=== PATIENT | male | born 1985 | race Caucasian/White ===

== ENCOUNTER 2022-12-03 13:20 | Emergency (ER) | payer BC, SELFPAY ==
[2022-12-03 13:40] VITALS: BP 134/99; PULSE 70; RESP 14; TEMP 36.8; O2SAT 100; BMI 23.8
--- NOTE | 2022-12-03 13:49 | ECG_ITS ---
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
[2022-12-03 13:51] VITALS: O2SAT 98
--- NOTE | 2022-12-03 14:01 | XR_ITS ---
The [address] [address] Patient Name: TRAVON MCCARTNEY MRN: [id number] date: 1985 Sex: M Assigned Patient Location: ED.MAIN Current Patient Location: ER Accession/Order Number: [id number] Exam Date: 12/03/2022 14:23 Report Date: 12/03/2022 15:07 At the request of: MATTIE STEIN Procedure: XR chest 1V XR chest 1V CLINICAL HISTORY: syncope. COMPARISON: None Available. TECHNIQUE: Single AP portable upright view of the chest. FINDINGS: The lungs are clear. No pleural effusion or pneumothorax. Cardiomediastinal silhouette size is normal. No acute bony process. IMPRESSION: No acute cardiopulmonary process. Electronically authenticated by: RAFIA GUADALUPE Date: 12/03/2022 15:07
[2022-12-03 14:27] LABS: Bilirubin Urine NEGATIVE (NEGATIVE); Blood Urine NEGATIVE (NEGATIVE); Clarity Urine CLEAR (CLEAR); Color Urine LT. YELLOW (YELLOW); Glucose Urine UA NEGATIVE (NEGATIVE); Ketones Urine NEGATIVE (NEGATIVE); Leukocyte Esterase Urine NEGATIVE (NEGATIVE); Nitrite Urine NEGATIVE (NEGATIVE); Protein Urine NEGATIVE (NEG/TRACE); Urobilinogen Urine 0.2 EU/dL (0.2-1.0); pH Urine 7.5 (5.0-9.0)
[2022-12-03 14:31] LABS: Urine Microscopic Indicated NO
[2022-12-03 14:32] LABS: Basophils Percent Auto 0.6 % (0.2-2.0); Eosinophils Absolute Auto 0.1 10^3/uL (0.0-0.7); Eosinophils Percent Auto 1.9 % (0.9-7.0); Hematocrit 40.7 % (42.0-54.0); Hemoglobin 14.3 g/dL (14.0-18.0); Immature Granulocytes Abs Auto 0.03 10^3/uL (0.00-0.03); Immature Granulocytes Pct Auto 0.6 % (0.0-0.5); Lymphocytes Percent Auto 21.4 % (20.5-60.0); Mean Corpuscular HGB Conc 35.1 g/dL (29.9-35.2); Mean Corpuscular Hemoglobin 30.6 pg (25.9-34.0); Mean Platelet Volume 10.7 fL (9.5-13.5); Monocytes Absolute Auto 0.4 10^3/uL (0.3-0.8); Monocytes Percent Auto 7.9 % (1.7-12.0); Neutrophils Absolute Auto 3.2 10^3/uL (1.4-6.5); Neutrophils Percent Auto 67.6 % (43.0-75.0); Platelet Count 279 10^3/uL (150-450); Red Blood Count 4.68 10^6/uL (4.70-6.10); Red Cell Distribution Width 12.7 % (11.0-15.0); White Blood Count 4.7 10^3/uL (4.0-11.0)
[2022-12-03 14:36] VITALS: BP 127/83; BP 136/87; BP 138/93; PULSE 58; PULSE 60; PULSE 68
[2022-12-03 14:43] LABS: Anion Gap 11.5; BUN Creatinine Ratio 11.3; Calcium 9.6 mg/dL (8.5-10.1); Carbon Dioxide 28.5 mmol/L (21.0-32.0); Chloride 102 mmol/L (98-107); Estimated GFR (African America >60 (>=60); Estimated GFR (Non-African Ame >60 (>=60); Glucose 98 mg/dL (74-106); Sodium 138 mmol/L (136-145); Troponin I High Sensitivity <4.0 pg/mL (4.0-76.1)
[2022-12-03] MEDS: 0.9 % SODIUM CHLORIDE 1,000 ML 999 ML IV (14:47)
--- NOTE | 2022-12-03 15:34 | ED_ITS ---
HPI - Syncope General Chief Complaint: Syncope Stated Complaint: SYNCOPE Time Seen by Provider: 12/03/22 14:01 Source: patient Mode of arrival: Wheelchair History of Present Illness HPI narrative: patient was at work, exerting himself when he suddenly got dizzy, felt faint and then passed out. he did not injure anything. On arrival he was already feeling better. He told me that he did not take his psych meds last night and that he thinks that is what caused that. He denied any cardiac symptoms, ear rigning or visual changes associated with the event. Related Data Allergies Allergy/AdvReac Type Severity Reaction Status Date / Time No Known Drug Allergies Allergy Verified 12/03/22 13:40 Exam Constitutional Vital Signs - 24 hr 12/03/22 13:40 12/03/22 13:51 12/03/22 14:36 Temperature 98.2 F Pulse Rate [Monitor] 70 Pulse Rate [orthostatic lying] 60 Pulse Rate [orthostatic sitting] 68 Pulse Rate [orthostatic standing] 58 L Respiratory Rate 14 Blood Pressure [Left Arm] 134/99 H Blood Pressure [orthostatic lying] 127/83 H Blood Pressure [orthostatic sitting] 138/93 H Blood Pressure [orthostatic standing] 136/87 H Pulse Oximetry 100 98 Oxygen Delivery Method Room Air Room Air Course Vital Signs Vital signs: Vital Signs Temperature 98.2 F 12/03/22 13:40 Pulse Rate 70 12/03/22 13:40 Respiratory Rate 14 12/03/22 13:40 Blood Pressure 134/99 H 12/03/22 13:40 Pulse Oximetry 100 12/03/22 13:40 Oxygen Delivery Method Room Air 12/03/22 13:40 Temperature 98.2 F 12/03/22 13:40 Pulse Rate 60 12/03/22 14:36 Respiratory Rate 14 12/03/22 13:40 Blood Pressure 127/83 H 12/03/22 14:36 Pulse Oximetry 98 12/03/22 13:51 Oxygen Delivery Method Room Air 12/03/22 13:51 MDM - Syncope MDM Narrative Medical decision making narrative: 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 Blood drawn and sent for evaluation. orthostatics were negative. The patient was given normal saline IV fluid. He felt better after receiving that. EKG was normal and his blood tests were unremarkable. He was informed of results, given reassurance and discharged home. I encouraged her to make sure he was eating appropriately, taking plenty of fluids and take his medications as prescribed. Lab Data Attestation: I reviewed the patient's lab results. Labs: Lab Results 12/03/22 12/03/22 Range/Units 14:00 14:19 WBC 4.7 (4.0-11.0) 10^3/uL RBC 4.68 L (4.70-6.10) 10^6/uL Hgb 14.3 (14.0-18.0) g/dL Hct 40.7 L (42.0-54.0) % MCV 87.0 (80.0-94.0) fL MCH 30.6 (25.9-34.0) pg MCHC 35.1 (29.9-35.2) g/dL RDW 12.7 (11.0-15.0) % Plt Count 279 (150-450) 10^3/uL MPV 10.7 (9.5-13.5) fL Neut % (Auto) 67.6 (43.0-75.0) % Lymph % (Auto) 21.4 (20.5-60.0) % Lucas % (Auto) 7.9 (1.7-12.0) % Eos % (Auto) 1.9 (0.9-7.0) % Baso % (Auto) 0.6 (0.2-2.0) % Neut # (Auto) 3.2 (1.4-6.5) 10^3/uL Lymph # (Auto) 1.0 L (1.2-3.8) 10^3/uL Lucas # (Auto) 0.4 (0.3-0.8) 10^3/uL Eos # (Auto) 0.1 (0.0-0.7) 10^3/uL Baso # (Auto) 0.0 (0.0-0.1) 10^3/uL Abs Immat Gran (auto) 0.03 (0.00-0.03) 10^3/uL Imm/Tot Granulo (auto) 0.6 H (0.0-0.5) % Sodium 138 (136-145) mmol/L Potassium 4.0 (3.5-5.1) mmol/L Chloride 102 (98-107) mmol/L Carbon Dioxide 28.5 (21.0-32.0) mmol/L Anion Gap 11.5 BUN 13.0 (7.0-18.0) mg/dL Creatinine 1.15 (0.70-1.30) mg/dL Est GFR ( Amer) >60 (>=60) Est GFR (Non-Af Amer) >60 (>=60) BUN/Creatinine Ratio 11.3 Glucose 98 (74-106) mg/dL Calcium 9.6 (8.5-10.1) mg/dL Troponin I High Sens <4.0 L (4.0-76.1) pg/mL Urine Color Lt. yellow (YELLOW) Urine Clarity Clear (CLEAR) Urine pH 7.5 (5.0-9.0) Ur Specific [place] 1.010 (1.005-1.025) Urine Protein Negative (NEG/TRACE) mg/dL Urine Glucose (UA) Negative (NEGATIVE) mg/dL Urine Ketones Negative (NEGATIVE) mg/dL Urine Occult Blood Negative (NEGATIVE) Urine Nitrite Negative (NEGATIVE) Urine Bilirubin Negative (NEGATIVE) Urine Urobilinogen 0.2 (0.2-1.0) EU/dL Ur Leukocyte Esterase Negative (NEGATIVE) ECG Data Interpretation: EKG interpretation: Emergency Department physician interpretation. Normal sinus rhythm at 61bpm. Normal axis, normal intervals and no ST segment elevation or depression.normal EKG Discharge Plan Discharge Chief Complaint: Syncope Clinical Impression: Syncope Patient Disposition: Home, Self-Care Time of Disposition Decision: 15:37 Instructions: Syncope (ED) Stand Alone Forms: Portal Instructions Referrals: Ze England MD [Primary Care Provider] - 1 week
== END 2022-12-03 15:43 | disposition home or self-care (01) ==
PROVIDERS: Emergency Provider Emergency Medicine; PCP Family Medicine
DX: R55 Syncope and collapse (principal); Z79.899 Other long term (current) drug therapy
CPT/HCPCS: 36415; 71045; 80048; 81003; 84484; 85025; 93005; 99285

== ENCOUNTER 2023-06-01 09:48 | Outpatient (OUT) | payer BC, SELFPAY ==
--- NOTE | 2023-06-01 09:54 | XR_ITS ---
The [address] [address] Patient Name: TRAVON MCCARTNEY MRN: [id number] date: 1985 Sex: M Assigned Patient Location: RAD Current Patient Location: [facility] Accession/Order Number: [id number] Exam Date: 06/01/2023 09:58 Report Date: 06/02/2023 10:03 At the request of: EVERARDO PARK Procedure: XR knee RT 3V EXAM: XR knee RT 3V HISTORY: Right Knee Pain M25.561 COMPARISON: None. TECHNIQUE: 3 views of the right knee were obtained. FINDINGS: No definite acute fracture or dislocation. No significant focal osseous or articular abnormalities are identified. No evidence of sizable suprapatellar joint effusion. Soft tissues are grossly within normal limits. XR/XR knee RT 3V IMPRESSION: Right knee study is grossly unremarkable. Follow up as needed. Electronically authenticated by: TERRIE MARTIN Date: 06/02/2023 10:03
== END 2023-06-01 09:49 | disposition home or self-care (01) ==
LOC: RAD 09:49
PROVIDERS: PCP Nurse Practitioner Family; Visit Provider Nurse Practitioner Family
DX: M25.561 Pain in right knee (principal)
CPT/HCPCS: 73562

== ENCOUNTER 2023-06-22 13:17 | Outpatient (RCR) | payer BC, SELFPAY | END 2023-08-01 12:34 | disposition home or self-care (01) | LOC: PT 13:17 | PROVIDERS: PCP Nurse Practitioner Family; Visit Provider Nurse Practitioner Family | DX: M25.561 Pain in right knee (principal) | CPT/HCPCS: 97010; 97035; 97110; 97112; 97140; 97162 ==

== ENCOUNTER 2023-06-27 08:14 | Outpatient (OUT) | payer BC, SELFPAY ==
--- OUTSIDE RECORDS SUMMARY | 2023-06-27 08:15 | XMS_ITS | CCD ---
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 Name Role Phone VIVIAN, EVERARDO Primary Care Unavailable CARLOS, AHMAD Admitting Unavailable CARLOS, AHMAD Attending Unavailable CARLOS, AHMAD Consulting Unavailable HOY ., DR MILLAN Admitting Unavailable VIVIAN, EVERARDO Primary Care Unavailable HOY ., DR MILLAN Attending Unavailable HOY ., DR MILLAN Consulting Unavailable VIVIAN, EVERARDO Admitting Unavailable VIVIAN, EVERARDO Attending Unavailable VIVIAN, [facility] Primary Care Unavailable JOHNATHAN, DR AUGIE Fonseca Consulting Unavailable HAY ., DR PHELPS Admitting Unavailable HAY ., DR PHELPS Attending Unavailable VIVIAN, EVERARDO Primary Care Unavailable HAY ., DR PHELPS Consulting Unavailable LYNDA HASSAN Consulting Unavailable CARLOS, AHMAD Admitting Unavailable CARLOS, AHMAD Attending Unavailable CARLOS, AHMAD Consulting Unavailable [facility], EVERARDO Primary Care Unavailable RICHI, DR EVERT Rocha Consulting Unavailable GENE CABRAL Admitting Unavailable GENE CABRAL Attending Unavailable [facility] Primary Care Unavailable GENE CABRAL Consulting Unavailable Problems Active Problems Problem Classification Problem Date Documented Da te Episodic/Chronic Other endocrine disorders (4 sources) Hypopituitarism; 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 Substance-related disorders (1 source) Nicotine dependence, cigarettes, uncomplicated; Translations: [NICOTINE DEPEND CIGARETTES UNCOMP] Onset: 06-07-2022 Chronic Unclassified (3 sources) CONTACT W/AND (SUSP) EXPOS COVID-19; Translations: [CONTACT W/AND (SUSP) EXPOS COVID-19] Onset: 12-13-2021 Past or Other Problems Problem Classification Problem Date Documented Da te Episodic/Chronic E Codes: Natural/environment (1 source) Overexertion from prolonged static or awkward postures, initial encounter; Translations: [OVEREXERT PROLNG STAT/AWK PST INIT] Onset: 06-07-2022 Episodic Fracture of lower limb (1 source) Nondisplaced fracture of fifth metatarsal bone, right foot, initial encounter for closed fracture; Translations: [NDSPL FX 5TH MT BN RT FT INIT CLOS] Onset: 06-07-2022 Episodic Other aftercare (1 source) 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; Translations: [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] Onset: 06-07-2022 Episodic Other connective tissue disease (4 sources) Pain in right foot; Translations: [PAIN IN RIGHT FOOT] Onset: 06-09-2022 Episodic Other non-traumatic joint disorders (3 sources) Pain in right ankle and joints of right foot; Translations: [PAIN IN RIGHT ANKLE] Onset: 06-05-2022 Episodic Residual codes; unclassified (1 source) Decreased libido; Translations: [DECREASED LIBIDO] Onset: 01-27-2022 Episodic Sprains and strains (1 source) Sprain of unspecified ligament of right ankle, initial encounter; Translations: [SPRAIN UNS LIGAMENT RT ANKLE INIT] Onset: 06-07-2022 Episodic Unclassified (1 source) CONTACT W/AND (SUSP) EXPOS COVID-19; Translations: [CONTACT W/AND (SUSP) EXPOS COVID-19] Onset: 12-10-2021 Results Test Name Value Interpretation Reference Range Facil ity TESTOSTERONE, TOTALon 2022 Testosterone [Mass/Vol] 893 ng/dL Normal 264-916 [facility] Comment on above: Result Comment: Adul t male reference interval is based on a population of healthy nonobese males (BMI <30) between 19 and 39 years old. Guilherme et.al. JCEM 2017,102;6646-3261. PMID: [id number]. Performed By: #### T ESTTOT #### [facility] [address] [address] [address] Ro Pizano HEMOGLOBINon 10-18-2022 Hemoglobin (Bld) [Mass/Vol] 14.4 g/dL Normal 14.0-18.0 [facility] Comment on above: Performed By: #### H GB #### [facility] [address] [address] [address] Ro Pizano TESTOSTERONE, TOTALon 2021 Testosterone [Mass/Vol] 1281 ng/dL Critically high 264-916 [facility] Comment on above: Result Comment: Adul t male reference interval is based on a population of healthy nonobese males (BMI <30) between 19 and 39 years old. Guilherme, et.al. JCEM 2017,102;3613-3260. PMID: [id number]. Performed By: #### T ESTTOT #### [facility] [address] [address] [address] Ro Pizano HEMOGLOBINon 01-25-2022 Hemoglobin (Bld) [Mass/Vol] 13.5 g/dL Critically low 14.0-18.0 [facility] Comment on above: Performed By: #### H GB #### [facility] [address] [address] [address] Ro Pizano Covid-19 PCR (CVDTBH)on SARS-CoV-2 (COVID-19) RNA SKY+probe Ql (Unsp spec) Not detected Normal NOT DETECTED [facility] Comment on above: Result Comment: This test is not yet approved or cleared by the [place] FDA. When there are no FDA-approved or cleared tests available, and other criteria are met, FDA can make tests available under an emergency access mechanism called an Emergency Use Authorization (EUA). The EUA for this test is supported by the [employer] Worker of Health and Human Service's (HHS's) declaration that circumstances exist to justify the emergency use of in vitro diagnostics for the detection and/or diagnosis of the virus that causes COVID-19. This EUA will remain in effect (meaning this test can be used) for the duration of the COVID-19 declaration justifying emergency of IVDs, unless it is terminated or revoked by FDA (after which the test may no longer be used). When diagnostic testing is negative, the possibility of a false negative should be considered in the context of a patient's recent exposures and the presence of clinical signs and symptoms consistent with SARS-CoV-2. Performed By: #### C VDTBH #### [facility] [address] [address] [address] Ro Pizano Encounters Encounter Date Encounter Type Care Provider Facility Start: 10-18-2022 End: 10-19-2022 ambulatory EVERARDO PARK Facility:[facility] Start: 06-09-2022 End: 06-10-[address] EVERT STODDARD Facility:[facility] Start: 06-05-2022 End: 06-05-[address] AUGIE MANN Facility:[facility] Start: 01-25-2022 End: 01-26-2022 ambulatory MICHELLE GONZALEZ Facility:[facility] Start: 12-10-2021 End: 12-10-[address] YANA MEEHAN . Facility:[facility] Procedures Date Procedure Procedure Detail Performing Clinician Start: 10-18-2022 PSA screening EVERARDO FLORES Comment on above: Performed By: #### P SAD #### [facility] [address] [address] [address] Ro Pizano Start: 01-25-2022 PSA screening EVERARDO FLORES Comment on above: Performed By: #### P SAD #### [facility] [address] [address] [address] Ro Pizano Payers Date Payer Category Payer Unknown [id number] 2.16.84 [id number] 1985 Unknown [id number] 2.16.84 [id number] 1985 Unknown [id number] 2.16.84 [id number] 1985 Unknown [id number] 2.16.84 [id number] 1985 Unknown [id number] 2.16.84 [id number] 1985 Unknown [id number] 2.16.84 [id number] 1961 Unknown [id number] Clinical Note 06-09-2022 Note Date & Type Note Facility 06-09-2022 Note PROCEDURE: XR FOOT R T MIN 3 VIEWS COMPARISON: 06/05/2022. HISTORY: Pain in right foot FINDINGS: BONES:Subtle stable nondisplaced nonangulated intra-articular fracture base of the fifth metatarsal. No dislocation SOFT TISSUES:Negative. No visible soft tissue swelling. EFFUSION:None visible. OTHER: Negative. IMPRESSION: Stable nondisplaced intra-articular fracture base of the fifth metatarsal Electronically authenticated by: EVERT STODDARD Date: 2022-06-09 14:37 [facility] Clinical Note 06-05-2022 Note Date & Type Note Facility 06-05-2022 Note PROCEDURE: XR ANKLE RT MIN 3 VIEWS HISTORY: Pain , swelling, and bruising following twisting injury COMPARISON: XR ankle right 12/09/2020 FINDINGS: BONES:Small fracture fragment at base of fifth metatarsal seen on the oblique view of the ankle. Ankle joint is intact and smoothly corticated. SOFT TISSUES:No visible soft tissue swelling. EFFUSION:None visible. OTHER: Negative. IMPRESSION: 1. Suspect nondisplaced fracture at base of fifth metatarsal. Correlate for pain in this area. 2. No acute bone abnormality at level of ankle joint. Electronically authenticated by: AUGIE MANN Date: 2022-06-05 18:30 [facility] Summary Purpose Family History No Family History Records Found Advance Directives No Advanced Directives Records Found Additional Source Comments (unrecognized sect ion and content) No Status Records Found INFORMATION SOURCE (unrecogn ized section and content) DATE CREATED AUTHOR 10/19/2022 [facility] FOR RECORDS PERTAINING TO PATIENTS WHO ARE OR HAVE BEEN ENROLLED IN A CHEMICAL DEPENDENCY/SUBSTANCEABUSE PROGRAM, SOME INFORMATION MAY BE OMITTED. This clinical summary was aggregated from multiple sources. Caution should be exercised in using it in the provision of clinical care. This summary normalizes information from multiple sources, and as a consequence, information in this document may materially change the coding, format and clinical context of patient data. In addition, data may be omitted in some cases. CLINICAL DECISIONS SHOULD BE BASED ON THE PRIMARY CLINICAL RECORDS. [employer] provides no warranty or guarantee of the accuracy or completeness of information in this document.
[2023-06-27 08:27] LABS: Hemoglobin 12.5 g/dL (14.0-18.0)
[2023-06-27 11:00] LABS: Prostate Specific Antigen Dx 1.11 ng/mL (<=4.00)
[2023-06-28 08:12] LABS: Testosterone 350 ng/dL (264-916)
== END 2023-06-27 08:15 | disposition home or self-care (01) ==
LOC: LAB 08:14
PROVIDERS: PCP Nurse Practitioner Family
DX: E23.0 Hypopituitarism (principal)
CPT/HCPCS: 36415; 84153; 84403; 85018

== ENCOUNTER 2023-08-29 09:28 | Outpatient (OUT) | payer BC, SELFPAY ==
--- NOTE | 2023-08-29 09:31 | MR_ITS ---
[address] [address] Patient Name: TRAVON MCCARTNEY MRN: [id number] date: 1985 Sex: M Assigned Patient Location: MRI Current Patient Location: MRI Accession/Order Number: [id number] Exam Date: 08/29/2023 09:57 Report Date: 08/29/2023 11:49 At the request of: EVERARDO PARK Procedure: MR knee RT wo con EXAMINATION: MR knee RT wo con HISTORY: Right Knee Pain M25.561 COMPARISON: No relevant comparison available. TECHNIQUE: A complete multi-planar MRI was performed. FINDINGS: MEDIAL COMPARTMENT MEDIAL MENISCUS: There is a truncated and thinned appearance of the anterior horn of the medial meniscus likely representing a chronic meniscal injury. No free meniscal fragment is observed CARTILAGE: No visible defect. BONES: Narrowing of the anterior medial joint space. Some mild increased signal along the anterior femoral condyle tibial plateau suggests bone edema MCL AND MEDIAL CAPSULE: Normal medial collateral ligament and medial capsule. LATERAL COMPARTMENT LATERAL MENISCUS: No visible tear or significant degeneration. CARTILAGE: No visible defect. BONES: No marrow pathology, fracture, or significant arthropathy. LCL/POSTEROLAT COMPLEX: Normal lateral collateral ligament, fascicles, lateral capsule and ligaments. ANTERIOR COMPARTMENT PATELLA: No marrow pathology, fracture, or significant arthropathy. CARTILAGE: No visible defect. TENDONS: Normal. EFFUSION: None. No synovitis or loose bodies. ACL: Normal appearing ligament. PCL: Normal appearing ligament. MENISCOFEMORAL: Normal meniscofemoral ligaments. OTHER: Negative. MR/MR knee RT wo con IMPRESSION: Joint space narrowing and mild bone edema anterior medial compartment with likely chronic injury to the anterior medial meniscus Electronically authenticated by: EVERT STODDARD Date: 08/29/2023 11:49
--- OUTSIDE RECORDS SUMMARY | 2023-08-29 09:39 | XMS_ITS | CCD ---
Author Organization [facility] Care Team Providers Care 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 Name Role Phone EVERARDO PARK Primary Care Unavailable CARLOS, AHMAD Admitting Unavailable CARLOS, AHMAD Attending Unavailable CARLOS, AHMAD Consulting Unavailable DARVINY ., DR MILLAN Admitting Unavailable VIVIAN, EVERARDO Primary Care Unavailable HOY ., DR MILLAN Attending Unavailable HOY ., DR MILLAN Consulting Unavailable VIVIAN, EVERARDO Admitting Unavailable VIVIAN, EVERARDO Attending Unavailable VIVIAN, EVERARDO Primary Care Unavailable JOHNATHAN, DR AUGIE Fonseca Consulting Unavailable EMIL ., DR PHELPS Admitting Unavailable HAY ., DR PHELPS Attending Unavailable VIVIAN, EVERARDO Primary Care Unavailable HAY ., DR PHELPS Consulting Unavailable LYNDA HASSAN Consulting Unavailable CARLOS, AHMAD Admitting Unavailable CARLOS, AHMAD Attending Unavailable CARLOS, AHMAD Consulting Unavailable [facility], EVERARDO Primary Care Unavailable RICHI, DR EVERT Rocha Consulting Unavailable GENE CABRAL Admitting Unavailable GENE CABRAL Attending Unavailable [facility], EVERARDO Primary Care Unavailable GENE CABRAL Consulting Unavailable José Miguel EPPS-Froilan LAN Unavailable Myah Pak MD Primary Care Provider FROILAN SAMUEL Attending Unavailab FROILAN Esquivel Attending Unavailab le EVERARDO PARK S Primary Care Unavailable THUMSARAY MEDEROS Attending Unavaila ble NEHEMIAH ALMEIDA Consulting Unavailable SARAY SIMMONS Admitting Unavaila ble Medications Current Medications Medication Drug Class(es) Dates Sig (Normalized) Sig (Original) B-D 3CC LUER-ROD SYR 22GX1 22G X 1 3 ML misc (3 sources) Start: 04-29-2022 B-D 3CC LUER-ROD SYR 22GX1 22G X 1 3 ML misc USE DIRECTED EVERY 2 WEEKS 0 04/29/2022 Active hydrOXYzine pamoate 50 mg oral capsule (3 sources) Antihistamine Start: 03-22-2023 take 1 capsule by mouth every eight hours as needed for anxiety, then take 1 capsule by mouth once daily as needed for anxiety hydrOXYzine pamoate (Vistaril) 50 MG capsule Indications: Anxiety disorder, unspecified type Take 1 capsule (50 mg) by mouth every 8 (eight) hours if needed for anxiety (1 capsule daily as needed). 30 capsule 1 03/22/2023 Active lamoTRIgine 150 mg oral tablet (3 sources) Mood Stabilizer, Anti-epileptic Agent Start: 05-03-2023 End: 08-01-2023 take 1 tablet by mouth in the morning lamoTRIgine (LaMICtal) 150 MG tablet Indications: Bipolar 1 disorder, depressed, moderate (CMS/HCC) Take 1 tablet (150 mg) by mouth in the morning and 1 tablet (150 mg) before bedtime. 180 tablet 0 05/03/2023 08/01/2023 Active mirtazapine 30 mg oral tablet (3 sources) Start: 05-03-2023 End: 08-01-2023 take 1 tablet by mouth at bedtime mirtazapine (Remeron) 30 MG tablet Indications: Anxiety disorder, unspecified type Take 1 tablet (30 mg) by mouth at bedtime. 90 tablet 0 05/03/2023 08/01/2023 Active QUEtiapine 50 mg oral tablet (6 sources) Atypical Antipsychotic Start: 07-03-2023 End: 09-01-2023 take 1 tablet by mouth at bedtime QUEtiapine (SEROquel) 50 MG tablet Indications: Bipolar 1 disorder, depressed, moderate (CMS/HCC) Take 1 tablet (50 mg) by mouth at bedtime 30 tablet 1 07/03/2023 09/01/2023 Active Start: 05-03-2023 End: 08-01-2023 take 1 tablet by mouth at bedtime QUEtiapine (SEROquel) 400 MG tablet Indications: Bipolar 1 disorder, depressed, moderate (CMS/HCC) Take 1 tablet (400 mg) by mouth at bedtime. 90 tablet 0 05/03/2023 08/01/2023 Active sertraline 100 mg oral tablet (3 sources) Serotonin Reuptake Inhibitor Start: 07-03-2023 End: 09-01-2023 take 1 tablet by mouth in the morning sertraline (Zoloft) 100 MG tablet Indications: Anxiety disorder, unspecified type Take 1 tablet (100 mg) by mouth in the morning and 1 tablet (100 mg) before bedtime. 60 tablet 1 07/03/2023 09/01/2023 Active 1 ml testosterone cypionate 200 mg/ml injection (3 sources) Androgen testosterone cypionate (Depo-Testosterone) 200 MG/ML injection Inject 0.5 mg into the shoulder, thigh, or buttocks See administration instructions. Every other week 0 Active Problems Active Problems Problem Classification Problem Date Documented Da te Episodic/Chronic Anxiety disorders (5 sources) Anxiety disorder; Translations: [Anxiety disorder, unspecified] Onset: 10-13-2022 10-13-2022 Chronic Mood disorders (5 sources) Moderate depressed bipolar I disorder; Translations: [Bipolar disorder, current episode depressed, moderate] Onset: 10-13-2022 10-13-2022 Chronic Mood disorders (3 sources) Mood disorders; Translations: [Depression, unspecified] Onset: 07-22-2023 07-20-2023 Other endocrine disorders (4 sources) Hypopituitarism; 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 Substance-related disorders (1 source) Nicotine dependence, cigarettes, uncomplicated; Translations: [NICOTINE DEPEND CIGARETTES UNCOMP] Onset: 06-07-2022 Chronic Suicide and intentional self-inflicted injury (1 source) Suicidal ideations; Translations: [Suicidal ideations] Onset: 07-22-2023 Episodic Unclassified (3 sources) CONTACT W/AND (SUSP) EXPOS [...] 06-07-2022 Episodic Other aftercare (1 source) Other remote 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 Basophil 0.00 k/uL Normal 0.0-0.2 [facility] Comment on above: Performed By: #### C DP, PETE, ALCB #### [facility] [place] [address] Precision Agronomist: Trevon Zheng DO Abs.Neutrophil (Seg) 1.16 k/uL Low 1.3-9.1 [facility] Comment on above: Performed By: #### C DP, CP, ALCB #### [facility] [address] [place] [address] Precision Agronomist: Trevon Zheng DO Basophils/100 WBC (Bld) 0 % Normal 0-2 [facility] Comment on above: Performed By: #### C DP, CP, ALCB #### [facility] [address] [place] [address] Precision Agronomist: Trevon Zheng DO Eosinophils (Bld) [#/Vol] 0.03 10*3/uL Normal 0.0-0.4 [facility] Comment on above: Performed By: #### C DP, CP, ALCB #### [facility] [address] [place] [address] Precision Agronomist: Trevon Zheng DO Eosinophils/100 WBC (Bld) 1 % Normal 0-4 [facility] Comment on above: Performed By: #### C DP, CP, ALCB #### [facility] [address] [place] [address] Precision Agronomist: Trevon Zheng DO Lymphocytes (Bld) [#/Vol] 1.65 10*3/uL Normal 1.0-4.8 [facility] Comment on above: Performed By: #### C DP, CP, ALCB #### [facility] [place] [address] Precision Agronomist: Trevon Zheng DO Lymphocytes/100 WBC (Bld) 50 % High 24-44 [facility] Comment on above: Performed By: #### C DP, CP, ALCB #### [facility] [place] [address] Precision Agronomist: Trevon Zheng DO Monocytes (Bld) [#/Vol] 0.46 10*3/uL Normal 0.1-1.3 [facility] Comment on above: Performed By: #### C DP, CP, ALCB #### [facility] [address] [place] [address] Precision Agronomist: Trevon Zheng DO Monocytes/100 WBC (Bld) 14 % High 1-7 [facility] Comment on above: Performed By: #### C DP, CP, ALCB #### [facility] [place] [address] Precision Agronomist: Trevon Zheng DO Morphology Young (Bld) [Interp] Normal Normal [facility] Comment on above: Performed By: #### C DP, CP, ALCB #### [facility] [address] [place] [address] Precision Agronomist: Trevon Zheng DO Neutrophil (Seg) 35 % Low 36-66 [facility] Comment on above: Performed By: #### C DP, CP, ALCB #### [facility] [address] [place] [address] Precision Agronomist: Trevon Zheng DO Erythrocyte distribution width (RBC) [Ratio] 13.6 % Normal 11.5-14.9 [facility] Comment on above: Performed By: #### C DP, CP, ALCB #### [facility] [address] [place] [address] Precision Agronomist: Trevon Zheng DO Hematocrit (Bld) [Volume fraction] 36.7 % Low 41-53 [facility] Comment on above: Performed By: #### C DP, CP, ALCB #### [facility] [address] [place] [address] Precision Agronomist: Trevon Zheng DO Hemoglobin (Bld) [Mass/Vol] 12.7 g/dL Low 13.5-17.5 [facility] Comment on above: Performed By: #### C DP, CP, ALCB #### [facility] [address] [place] [address] Precision Agronomist: Trevon Zheng DO MCH (RBC) [Entitic mass] 31.0 pg Normal 26-34 [facility] Comment on above: Performed By: #### C DP, CP, ALCB #### [facility] [address] [facility] [place] [address] Precision Agronomist: Trevon Zheng DO MCHC (RBC) [Mass/Vol] 34.6 g/dL Normal 31-37 [facility] Comment on above: Performed By: #### C DP, CP, ALCB #### [facility] [place] [address] Precision Agronomist: Trevon Zheng DO MCV (RBC) [Entitic vol] 89.5 fL Normal 80-100 [facility] Comment on above: Performed By: #### C DP, CP, ALCB #### [facility] [address] [place] [address] Precision Agronomist: Trevon Zheng DO Platelet mean volume (Bld) [Entitic vol] 9.2 fL Normal 6.0-12.0 [facility] Comment on above: Performed By: #### C DP, CP, ALCB #### [facility] [address] [place] [address] Precision Agronomist: Trevon Zheng DO Platelets (Bld) [#/Vol] 219 10*3/uL Normal 150-450 [facility] Comment on above: Performed By: #### C DP, CP, ALCB #### [facility] [address] [place] [address] Precision Agronomist: Trevon Zheng DO RBC (Bld) [#/Vol] 4.10 10*6/uL Low 4.5-5.9 [facility] Comment on above: Performed By: #### C DP, CP, ALCB #### [facility] [address] [place] [address] Precision Agronomist: Trevon Zheng DO WBC (Bld) [#/Vol] 3.3 10*3/uL Low 3.5-11.0 [facility] Comment on above: Performed By: #### C DP, CP, ALCB #### [facility] [address] [place] [address] Precision Agronomist: Trevon Zheng DO Comp Metabolic Profon 2023 Albumin [Mass/Vol] 4.2 g/dL Normal 3.5-5.2 [facility] Comment on above: Performed By: #### C DP, CP, ALCB #### [facility] [address] [place] [address] Precision Agronomist: Trevon Zheng DO Alkaline Phos 70 U/L Normal 40-129 [facility] Comment on above: Performed By: #### C DP, CP, ALCB #### [facility] [address] [place] [address] Precision Agronomist: Trevon Zheng DO ALT [Catalytic activity/Vol] 18 U/L Normal 5-41 [facility] Comment on above: Performed By: #### C DP, CP, ALCB #### [facility] [address] [place] [address] Precision Agronomist: Trevon Zheng DO Anion gap [Moles/Vol] 9 mmol/L Normal 9-17 [facility] Comment on above: Performed By: #### C DP, CP, ALCB #### [facility] [address] [place] [address] Precision Agronomist: Trevon Zheng DO AST [Catalytic activity/Vol] 29 U/L Normal <40 [facility] Comment on above: Performed By: #### C DP, CP, ALCB #### [facility] [address] [place] [address] Precision Agronomist: Trevon Zheng DO Bilirubin [Mass/Vol] 0.2 mg/dL Low 0.3-1.2 [facility] Comment on above: Performed By: #### C DP, CP, ALCB #### [facility] [address] [facility] [place] [address] Precision Agronomist: Trevon Zheng DO Calcium [Mass/Vol] 9.5 mg/dL Normal 8.6-10.4 [facility] Comment on above: Performed By: #### C DP, CP, ALCB #### [facility] [address] [facility] [place] [address] Precision Agronomist: Trevon Zheng DO Chloride [Moles/Vol] 104 mmol/L Normal 98-107 [facility] Comment on above: Performed By: #### C DP CP, ALCB #### [facility] [place] [address] Precision Agronomist: Trevon Zheng DO CO2 [Moles/Vol] 28 mmol/L Normal 20-31 [facility] Comment on above: Performed By: #### C DAREK, PETE, ALCB #### [facility] [address] [facility] [place] [address] Precision Agronomist: Trevon Zheng DO Creatinine [Mass/Vol] 1.0 mg/dL Normal 0.7-1.2 [facility] Comment on above: Performed By: #### C DP, CP, ALCB #### [facility] [address] [facility] [place] [address] Precision Agronomist: Trevon Zheng DO GFR/1.73 sq M.predicted among non-blacks MDRD (S/P/Bld) [Vol rate/Area] mL/min/{1.73_m2} Normal >60 [facility] Comment on above: Result Comment: These results are not intended for use in patients <18 years of age. eGFR results are calculated without a race factor using the 2020 CKD-EPI equation. Careful clinical correlation is recommended, particularly when comparing to results calculated using previous equations. The CKD-EPI equation is less accurate in patients with extremes of muscle mass, extra-renal metabolism of creatine, excessive creatine ingestion, or following therapy that affects renal tubular secretion. Performed By: #### C DP, CP, ALCB #### [facility] [place] [address] Precision Agronomist: Trevon Zheng DO Glucose [Mass/Vol] 86 mg/dL Normal 70-99 [facility] Comment on above: Performed By: #### C DP, CP, ALCB #### [facility] [address] [place] [address]. [place] [address] Precision Agronomist: Trevon Zheng DO Potassium [Moles/Vol] 3.7 mmol/L Normal 3.7-5.3 [facility] Comment on above: Performed By: #### C DP, CP, ALCB #### [facility] [address] [place] [address]. [place] [address] Precision Agronomist: Trevon Zheng DO Protein [Mass/Vol] 6.7 g/dL Normal 6.4-8.3 [facility] Comment on above: Performed By: #### C DP, CP, ALCB #### [facility] [address] [place] [address]. [place] [address] Precision Agronomist: Trevon Zheng DO Sodium [Moles/Vol] 141 mmol/L Normal 135-144 [facility] Comment on above: Performed By: #### C DP, CP, ALCB #### [facility] [address] [place] [address]. [place] [address] Precision Agronomist: Trevon Zheng DO Urea nitrogen [Mass/Vol] 13 mg/dL Normal 6-20 [facility] Comment on above: Performed By: #### C DP, CP, ALCB #### [facility] [address] [place] [address] Precision Agronomist: Trevon Zheng DO Drug Scr, Abuse, Uron 2023 Amphetamine(s),Ur Negative Normal NEG [facility] Comment on above: Result Comment: (Positive cutoff 1000 ng/mL) Performed By: #### D AU #### [facility] [address] [place] [address] Precision Agronomist: Trevon Zheng DO Barbiturate(s),Ur Negative Normal NEG [facility] Comment on above: Result Comment: (Positive cutoff 200 ng/mL) Performed By: #### D AU #### [facility] [address] [place] [address] Precision Agronomist: Trevon Zheng DO Benzodiazepine(s) Negative Normal NEG [facility] Comment on above: Result Comment: (Positive cutoff 200 ng/mL) Performed By: #### D AU #### [facility] [address] [place] [address] Precision Agronomist: Trevon Zheng DO Cannabinoid(s),Ur Negative Normal NEG [facility] Comment on above: Result Comment: (Positive cutoff 50 ng/mL) Performed By: #### D AU #### [facility] [address] [place] [address] Precision Agronomist: Trevon Zheng DO Cocaine Metabolite Negative Normal NEG [facility] Comment on above: Result Comment: (Positive cutoff 300 ng/mL) Performed By: #### D AU #### [facility] [address] [place] [address] Precision Agronomist: Trevon Zheng DO Fentanyl, Urine Negative Normal NEG [facility] Comment on above: Result Comment: (Positive cutoff 5 ng/ml) Performed By: #### D AU #### [facility] [address] [place] [address] Precision Agronomist: Trevon Zheng DO Interpretive Info Assay provides medical screening only. The absence of expected drug(s) and/or Normal [facility] Comment on above: Result Comment: meta bolite(s) may indicate diluted or adulterated urine, limitations of testing or timing of collection. Testing for legal purposes should be confirmed by another method. To request confirmation of test result, please call the lab within 7 days of sample submission. Performed By: #### D AU #### [facility] [address] [place] [address] Precision Agronomist: Trevon Zheng DO Methadone Ql (U) Negative Normal NEG [facility] Comment on above: Result Comment: (Positive cutoff 300 ng/mL) Performed By: #### D AU #### [facility] [address] [place] [address] Precision Agronomist: Trevon Zheng DO Opiate(s), Ur Negative Normal NEG [facility] Comment on above: Result Comment: (Positive cutoff 300 ng/mL) Performed By: #### D AU #### [facility] [address] [place] [address] Precision Agronomist: Trevon Zheng DO Oxycodone, Urine Negative Normal NEG [facility] Comment on above: Result Comment: (Positive cutoff 100 ng/mL) Performed By: #### D AU #### [facility] [address] [place] [address] Precision Agronomist: Trevon Zheng DO Phencyclidine, Ur Negative Normal NEG [facility] Comment on above: Result Comment: (Positive cutoff 25 ng/mL) Performed By: #### D AU #### [facility] [address] [place] [address] Precision Agronomist: Trevon Zheng DO Ethanol Alcoholon 07-20-2023 Ethanol [Mass/Vol] mg/dL Normal <10 [facility] Comment on above: Performed By: #### C DP, CP, ALCB #### [facility] [address] [place] [address] Precision Agronomist: Trevon Zheng DO Ethanol percent <0.010 Normal [facility] Comment on above: Performed By: #### C DP, CP, ALCB #### [facility] [address] [place] [address] Precision Agronomist: Trevon Zheng DO TESTOSTERONE, TOTALon 2022 Testosterone [Mass/Vol] 893 ng/dL Normal 264-916 [facility] Comment on above: Result Comment: Adul t male reference interval is based on a population of healthy nonobese males (BMI <30) between 19 and 39 years old. Travfranky, et.al. JCEM 2017,102;3697-4664. PMID: [id number]. Performed By: #### T ESTTOT #### [facility] [address] [place] [address] Dr. Ro Pizano HEMOGLOBINon 10-18-2022 Hemoglobin (Bld) [Mass/Vol] 14.4 g/dL Normal 14.0-18.0 [facility] Comment on above: Performed By: #### H GB #### [facility] [address] [place] [address] Dr. Ro Pizano TESTOSTERONE, TOTALon 2021 Testosterone [Mass/Vol] 1281 ng/dL Critically high 264-916 [facility] Comment on above: Result Comment: Adul t male reference interval is based on a population of healthy nonobese males (BMI <30) between 19 and 39 years old. Travison, et.al. JCEM 2017,102;7307-3784. PMID: [id number]. Performed By: #### T ESTTOT #### [facility] [address] [place] [address] Dr. Ro Pizano HEMOGLOBINon 01-25-2022 Hemoglobin (Bld) [Mass/Vol] 13.5 g/dL Critically low 14.0-18.0 [facility] Comment on above: Performed By: #### H GB #### [facility] [address] [place], [place] [address] Dr. Ro Pizano Covid-19 PCR ([facility])on SARS-CoV-2 (COVID-19) RNA SKY+probe Ql (Unsp spec) Not detected Normal NOT DETECTED [facility] Comment on above: Result Comment: This test is not yet approved or cleared by the [place] FDA. When there are no FDA-approved or cleared tests available, and other criteria are met, FDA can make tests available under an emergency access mechanism called an Emergency Use Authorization (EUA). The EUA for this test is supported by the [place] of Health and Human Service's (HHS's) declaration [...] consistent with SARS-CoV-2. Performed By: #### C VDTB #### [facility] [address] [place], [place] [address] Dr. Ro Pizano Vital Signs Date Time Vital Sign Value Performing Clinician Faci lity 07-20-2023 15:02-0500 Body mass index (BMI) [Ratio] 24.96 kg/m2 Froilan Samuel FOOD CONSULTANT-INSEAMER Work Phone: [facility] 07-20-2023 15:02-0500 Body weight 68.04 kg Froilan Samuel FOOD CONSULTANT-INSEAMER Work Phone: [facility] 07-20-2023 15:02-0500 Diastolic blood pressure 78 mm[Hg] Froilan Samuel FOOD CONSULTANT-INSEAMER Work Phone: [facility] 07-20-2023 15:02-0500 Heart rate 99 /min Froilan Valenzuelaor-Nossek FOOD CONSULTANT-INSEAMER Work Phone: [facility] 07-20-2023 15:02-0500 Systolic blood pressure 122 mm[Hg] Froilan Reanna-Nossek FOOD CONSULTANT-INSEAMER Work Phone: [facility] Healthcare Encounters Encounter Date Encounter Type Care Provider Facility Start: 07-20-2023 End: 07-24-2023 Evaluation and management of inpatient EVERARDO PARK [facility] Start: 07-20-2023 End: 07-20-2023 ambulatory FROILAN Gagnon REANNA-NOSSEK Not Available Start: 07-20-2023 End: 07-20-2023 Office outpatient visit 40 minutes Froilan Gagnon Reanna-Nossek FOOD CONSULTANT-INSEAMER Work Phone: [facility] Comment on above: Bipolar 1 disorder, depressed, moderate (CMS/HCC); Anxiety disorder, unspecified type Start: 07-20-2023 Bamboo flowsheet Froilan Chelsi Fio r-Nossek FOOD CONSULTANT-INSEAMER Work Phone: [facility] Start: 07-20-2023 Bamboo flowsheet Froilan Chelsi Fio r-Nossek FOOD CONSULTANT-INSEAMER Work Phone: [facility] Start: 05-03-2023 End: 05-03-2023 ambulatory FROILAN Gagnon REANNA-NOSSEK Not Available Start: 10-18-2022 End: 10-19-2022 ambulatory EVERARDO PARK [...] above: Performed By: #### P SAD #### [facility] [address] [place], [place] [address] Dr. Ro Pizano Start: 01-25-2022 PSA screening EVERARDO FLORES Comment on above: Performed By: #### P SAD #### [facility] [address] [place], [place] [address] Dr. Ro Pizano Plan of Treatment Date Care Activity Detail Author Start: 02-03-2023 Influenza vaccination Influenza Vacc ine (#1) [facility] Payers Date Payer Category Payer Unknown BCBS BCBS [id number] 2021-Present [phone] [address] [place] [address] [id number] 1983 Unknown [id number] 1983 Unknown [id number] 1983 Unknown [id number] 1983 Unknown [id number] 1983 Unknown [id number] 1983 Unknown [id number] 1983 Unknown [id number] 1983 Unknown [id number] 1983 Unknown [id number] 1961 Unknown [id number] Social History Date Type Detail Facility Start: 11-29-2022 Tobacco smoking status NHIS Never sm oked tobacco [facility] Start: 11-29-2022 Tobacco use and exposure Smoke less tobacco non-user [facility] Start: 05-03-2023 End: 07-20-2023 Alcohol intake Current drinker of alcohol (finding) [facility] Start: 11-29-2022 End: 07-20-2023 [facility] Start: 11-29-2022 End: 07-20-2023 Alcohol Use Disorder Identification Test - Consumption [AUDIT-C] [facility] How often to you hav e a drink containing alcohol? Monthly or less [facility] How many standard dr inks containing alcohol do you have on a typical day? 1 or 2 [facility] How often do you hav e 6 or more drinks on 1 occasion? Never [facility] Start: 11-29-2022 Alcohol Comment 2 energy drink s, occasional coffee [facility] Start: 1985 Sex Assigned At Not on file [facility] Start: 08-17-2022 Gender identity Identifies as male gender (finding) [facility] History of Present illness Narrative 07-20-2023 Froilan Samuel, FOOD CONSULTANT-[facility] - 07/20/2023 3:00 PM Bertha Beaulieu, TUMBLING AND ROLLING SUPERVISOR - 07/20/2023 3:00 PM EST Note Date & Type Note Facility 07-20-2023 History of Presen t illness Narrative Images from the original note were not included. Travon Tijerina 36 Y old Male,: 1985 [address] [place], [id number] Home: Guarantor:Travon Tijerina Insurance:[employer] PCP:Myah Pak Referring:Froilan Saleem History of Present Illness This is a medication management appt. He is c/o knee pain and its now at point where seeking treatment. Has to go to physical therapy. Patient states he's been more depressed. Passive suicidal thoughts. Mood is hopeless and helpless. Patient reports a plan and intent is questionable. I'm not happy and getting nowhere in life. Triggers finances, hates job, not happy in marriage, Patient can't keep him self safe. Patient discussed difficulties. Working night, Working 12 hours at [employer](working nights),. 4 days a week. Tired of [employer] work. Quit gym. Next week will be on days. Works at [employer]. Denies anxiety. Sleeping 6-7 hours. Medication compliant. No reported side effects. Denies abuse of substances. New Medical problems since last visit knee problems. . Stressors: financial, spending money. Sees a counselor thru [facility]. Once a week. Online counseling . Past Medical History Depression. Bipolar Disorder. H/O Alcohol Abuse. H/O Drug Abuse. Clenching of jaw. COVID-19 02/24/22. Surgical History No Surgical History documented. Family History Father: alive Mother: alive, Bipolar, no treatment, diagnosed with Mental Illness Siblings: alive, Younger Sister: Bipolar, no medication, diagnosed with Mental Illness Paternal Grand Father: Paternal Grand Mother: Maternal Grand Father: Maternal Grand Mother: Son(s): alive Daughter(s): alive 2 sister(s) . 1 son(s) , 2 daughter(s) . Mother had heart attack daughter of Hydrocephalis. Social History Caffeine: more than 4 cups per day. Education: HS graduate, some college. Children: 1 son and 3 daughters. Domestic violence Type of Violence None Housing: owns a home. Legal problems: 2007 Patient was arrested for possession of a controlled substance, felony 5, did probation for 1 1/2 years 2 DUI's. Living with: spouse( Paola) and 3 children. Marital status . Occupation: Works full-time at [employer]. Pets: one dog. Sexual abuse: none. Verbal abuse: none. Allergies N.K.D.A. Hospitalization/Major Diagnostic Procedure Patient has never been hospitalized for mental health, no suicide attempts Examination Psychiatry: APPEARANCE:well-groomed , appears stated age. ABNORMAL BODY MOVEMENTS: none. ABSTRACTION: good. AFFECT:appropriate , full range. AGGRESSION:none. ATTENTION: good. ATTITUDE: cooperative. CURRENT HOMICIDALITY: none. CURRENT SUICIDALITY:-no plan or intent - . DEGREE OF AWARENESS OF SURROUNDINGS: within normal limits. IMPULSE CONTROL: good. INSIGHT: good-fair. INTELLIGENCE (estimate):, average. JUDGEMENT: good. MOOD: mild -mod depression, sad ORIENTATION: yes, Time:, Place:, Person:. PERCEPTUAL DISORDERS: no perceptual disorder noted. PSYCHOMOTOR ACTIVITY: within normal range. SEXUAL IMPULSE CONTROL: good. SPEECH: clear, normal/R/V/R. THOUGHT CONTENT: unremarkable. THOUGHT PROCESS: intact. Assessments 1. Anxiety disorder, unspecified - F41.9 2. Bipolar 1 disorder, depressed, moderate - F31.32 (Primary) Treatment 1.Bipolar 1 disorder, depressed, moderate lamoTRIgine Tablet, 150 MG, 1 tablet, orally, bid hydrOXYzine Pamoate Capsule, 50 MG, TAKE ONE CAPSULE BY MOUTH EVERY DAY NEEDED, Orally, Q 8HOURS PRN ANXIETY, Notes: prn QUEtiapine Fumarate Tablet, 400 MG, TAKE 1 TABLET BY MOUTH EVERY DAY AT BEDTIME, Orally, at bedtime, 90 days, 90, Refills 0 Mirtazapine Tablet, 30 MG, TAKE 1 TABLET BY MOUTH AT BEDTIME, Orally, Once a day, Sertraline HCl Tablet, 100 MG, bid Once a day, seroquel 50mg at hs Continue current medications to target mood-increasing seroquel 100mg bid to target mood Continue with counseling. -online Will be sending to hospital - called to picker feeder. felt safe to transfer patient to hospital and agreed to go [facility]. Patient agreed need to be admitted and agreed to stay safe during transport. Face to face/documentation/review of record= 50min Patient was monitored while waited for to come. F/U post discharge Note generated by [employer] EMR/PM Software ([email or web address]) Having passive thoughts of not wanting to live, having financial stress. documented in this encounter [facility] Clinical Note 06-09-2022 Note Date & Type [...] authenticated by: EVERT STODDARD Date: 2022-06-09 14:37 [facility] Clinical Note 06-05-2022 Note Date & [...] authenticated by: AUGIE MANN Date: 2022-06-05 18:30 [facility] Evaluation note Note Date & Type Note Facility Evaluation note Diagnosis Bipolar 1 disorder, depressed, moderate (CMS/HCC) Anxiety disorder, unspecified type documented in this encounter [facility] Summary Purpose Family History No Family History Records FoundNo Family History Records FoundNo Family History Records Found Advance Directives No Advanced Directives Records FoundNo Advanced Directives Records FoundNo Advanced Directives Records Found Additional Source Comments (unrecognized sect ion and content) No Status Records FoundNo Status Records FoundNo Status Records Found INFORMATION SOURCE (unrecogn ized section and content) DATE CREATED AUTHOR 10/19/2022 [facility] pital DATE CREATED AUTHOR AUTHOR'S ORGANIZ ATION 07/22/2023 [facility] EPIC DATE CREATED AUTHOR AUTHOR'S ORGANIZ ATION 07/24/2023 [facility] Care Teams (unrecognized sec tion and content) 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 Relationship Specialty Start Date End Date Froilan Samuel, FOOD CONSULTANT-[employer] [address] [facility] [address] [place] [address] PCP - [employer] 09/03/21 Myah Pak MD [address] [place] [address] PCP - General Physician Manager [employer] 11/14/22 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 [employer] provides no warranty or guarantee of the accuracy or completeness of information in this document.
== END 2023-08-29 09:29 | disposition home or self-care (01) ==
LOC: MRI 09:29
PROVIDERS: PCP Nurse Practitioner Family; Visit Provider Nurse Practitioner Family
DX: M25.561 Pain in right knee (principal)
CPT/HCPCS: 73721

== ENCOUNTER 2023-11-14 08:01 | Outpatient (OUT) | payer BC, SELFPAY ==
--- NOTE | 2023-11-14 08:05 | XR_ITS ---
The [address] [address] Patient Name: TRAVON MCCARTNEY MRN: [id number] date: 1985 Sex: M Assigned Patient Location: [facility] Current Patient Location: [facility] Accession/Order Number: [id number] Exam Date: 11/14/2023 08:43 Report Date: 11/14/2023 09:01 At the request of: WILLIS ACHARYA Procedure: XR chest 2V EXAMINATION: XR chest 2V HISTORY: Preop exam COMPARISON: No relevant comparison available. TECHNIQUE: PA and lateral FINDINGS: LUNGS: No significant pulmonary parenchymal abnormalities. VASCULATURE: No increased pulmonary vasculature. PLEURA: No pneumothorax, effusion, or pleural thickening. CARDIAC: No cardiomegaly or cardiac silhouette abnormality. MEDIASTINUM: No visible mass or adenopathy. BONES: No fracture or visible bone lesion. OTHER: Negative. XR/XR chest 2V IMPRESSION: No acute cardiopulmonary process Electronically authenticated by: EVERT STODDARD Date: 11/14/2023 09:01
--- OUTSIDE RECORDS SUMMARY | 2023-11-14 08:19 | XMS_ITS | CCD ---
Author Organization [facility] CliniSymt Care Team Providers Care [employer] Supervisor Name Role Phone EVERARDO PARK Primary Care Unavailable CARLOS, AHMAD Admitting Unavailable CARLOS, AHMAD Attending Unavailable CARLOS, AHMAD Consulting Unavailable ZORAN ., DR MILLAN Admitting Unavailable VIVIAN, EVERARDO Primary Care Unavailable DARVINY ., DR MILLAN Attending Unavailable DARVINY ., DR MILLAN Consulting Unavailable VIVIAN EVERARDO Admitting Unavailable EVERARDO PARK Attending Unavailable VIVIAN, EVERARDO Primary Care Unavailable JOHNATHAN, DR AUGIE Fonseca Consulting Unavailable EMIL ., DR PHELPS Admitting Unavailable EMIL ., DR PHELPS Attending Unavailable VIVIAN, EVERARDO Primary Care Unavailable EMIL ., DR PHELPS Consulting Unavailable LYNDA HASSAN Consulting Unavailable CARLOS, AHMAD Admitting Unavailable CARLOS, AHMAD Attending Unavailable CARLOS, AHMAD Consulting Unavailable VIVIAN, EVERARDO Primary Care Unavailable RICHI, DR EVERT Rocha Consulting Unavailable GENE CABRAL Admitting Unavailable GENE CABRAL Attending Unavailable VIVIAN, EVERARDO Primary Care Unavailable GENE CABRAL Consulting Unavailable Reanna-Nossek MICH-Froilan LAN Unavailable Myah Pak MD Primary Care Provider EVERARDO PARK S Primary Care Unavailable THUMMALSARAY BEST Attending Unavaila NEHEMIAH Hardin S Consulting Unavailable THUMJOSIANE MEDEROSHEETH Admitting Unavaila ble FROILAN SAMUEL Attending Unavailab le REANNA-FROILAN NARVAEZ Attending Unavailab le REANNA-FROILAN NARVAEZ Attending Unavailab le FITZ ARORA Attending Unavailable REANNA-FROILAN NARVAEZ Attending Unavailab le Medications Current Medications Medication Drug Class(es) Dates [...] 06-07-2022 Episodic Other aftercare (1 source) 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 Basophil 0.00 k/uL Normal 0.0-0.2 [facility] Comment on above: Performed By: #### C DP, CP, ALCB #### [facility] [address] [place] [address] Pre Wave Assembler: Trevon Zheng DO Abs.Neutrophil (Seg) 1.16 k/uL Low 1.3-9.1 [facility] Comment on above: Performed By: #### C DP CP, ALCB #### [facility] [address] [place] [address] Pre Wave Assembler: Fanelly, Trevon, DO Basophils/100 WBC (Bld) 0 % Normal 0-2 [facility] Comment on above: Performed By: #### C DP, CP, ALCB #### [facility] [address] [place] [address] Pre Wave Assembler: Trevon Zheng DO Eosinophils (Bld) [#/Vol] 0.03 10*3/uL Normal 0.0-0.4 [facility] Comment on above: Performed By: #### C DP, CP, ALCB #### [facility] [address] [place] [address] Pre Wave Assembler: Trevon Zheng DO Eosinophils/100 WBC (Bld) 1 % Normal 0-4 [facility] Comment on above: Performed By: #### C DP, CP, ALCB #### [facility] [place] [address] Pre Wave Assembler: Trevon Zheng DO Lymphocytes (Bld) [#/Vol] 1.65 10*3/uL Normal 1.0-4.8 [facility] Comment on above: Performed By: #### C DP, CP, ALCB #### [facility] [place] [address] Pre Wave Assembler: Trevon Zheng DO Lymphocytes/100 WBC (Bld) 50 % High 24-44 [facility] Comment on above: Performed By: #### C DP, CP, ALCB #### [facility] [address] [facility] [place] [address] Pre Wave Assembler: Trevon Zheng DO Monocytes (Bld) [#/Vol] 0.46 10*3/uL Normal 0.1-1.3 [facility] Comment on above: Performed By: #### C DP, CP, ALCB #### [facility] [address] [place] [address] Pre Wave Assembler: Trevon Zheng DO Monocytes/100 WBC (Bld) 14 % High 1-7 [facility] Comment on above: Performed By: #### C DP, CP, ALCB #### [facility] [address] [place] [address] Pre Wave Assembler: Trevon Zheng DO Morphology Young (Bld) [Interp] Normal Normal [facility] Comment on above: Performed By: #### C DP, CP, ALCB #### [facility] [address] [place] [address] Pre Wave Assembler: Trevon Zheng DO Neutrophil (Seg) 35 % Low 36-66 [facility] Comment on above: Performed By: #### C DP, CP, ALCB #### [facility] [address] [place] [address] Pre Wave Assembler: Trevon Zheng DO Erythrocyte distribution width (RBC) [Ratio] 13.6 % Normal 11.5-14.9 [facility] Comment on above: Performed By: #### C DP, CP, ALCB #### [facility] [address] [place] [address] Pre Wave Assembler: Trevon Zheng DO Hematocrit (Bld) [Volume fraction] 36.7 % Low 41-53 [facility] Comment on above: Performed By: #### C DP, CP, ALCB #### [facility] [address] [place] [address] Pre Wave Assembler: Trevon Zheng DO Hemoglobin (Bld) [Mass/Vol] 12.7 g/dL Low 13.5-17.5 [facility] Comment on above: Performed By: #### C DP, CP, ALCB #### [facility] [address] [place] [address] Pre Wave Assembler: Trevon Zheng DO MCH (RBC) [Entitic mass] 31.0 pg Normal 26-34 [facility] Comment on above: Performed By: #### C DP, CP, ALCB #### [facility] [address] [place] [address] Pre Wave Assembler: Trevon Zheng DO MCHC (RBC) [Mass/Vol] 34.6 g/dL Normal 31-37 [facility] Comment on above: Performed By: #### C DP, CP, ALCB #### [facility] [address] [place] [address] Pre Wave Assembler: Trevon Zheng DO MCV (RBC) [Entitic vol] 89.5 fL Normal 80-100 [facility] Comment on above: Performed By: #### C DP, CP, ALCB #### [facility] [place] [address] Pre Wave Assembler: Trevon Zheng DO Platelet mean volume (Bld) [Entitic vol] 9.2 fL Normal 6.0-12.0 [facility] Comment on above: Performed By: #### C DP, CP, ALCB #### [facility] [place] [address] Pre Wave Assembler: Trevon Zheng DO Platelets (Bld) [#/Vol] 219 10*3/uL Normal 150-450 [facility] Comment on above: Performed By: #### C DP, CP, ALCB #### [facility] [place] [address] Pre Wave Assembler: Trevon Zheng DO RBC (Bld) [#/Vol] 4.10 10*6/uL Low 4.5-5.9 [facility] Comment on above: Performed By: #### C DP, CP, ALCB #### [facility] [address] [place] [address] Pre Wave Assembler: Trevon Zheng DO WBC (Bld) [#/Vol] 3.3 10*3/uL Low 3.5-11.0 [facility] Comment on above: Performed By: #### C DP, CP, ALCB #### [facility] [address] [place] [address] Pre Wave Assembler: Trevon Zheng DO Comp Metabolic Profon 2023 Albumin [Mass/Vol] 4.2 g/dL Normal 3.5-5.2 [facility] Comment on above: Performed By: #### C DP, CP, ALCB #### [facility] [address] [place] [address] Pre Wave Assembler: Trevon Zheng DO Alkaline Phos 70 U/L Normal 40-129 [facility] Comment on above: Performed By: #### C DP, CP, ALCB #### [facility] [address] [place] [address] Pre Wave Assembler: Trevon Zheng DO ALT [Catalytic activity/Vol] 18 U/L Normal 5-41 [facility] Comment on above: Performed By: #### C DP, CP, ALCB #### [facility] [place] [address] Pre Wave Assembler: Trevon Zheng DO Anion gap [Moles/Vol] 9 mmol/L Normal 9-17 [facility] Comment on above: Performed By: #### C DP, CP, ALCB #### [facility] [address] [place] [address] Pre Wave Assembler: Trevon Zheng DO AST [Catalytic activity/Vol] 29 U/L Normal <40 [facility] Comment on above: Performed By: #### C DP, CP, ALCB #### [facility] [address] [facility] [place] [address] Pre Wave Assembler: Trevon Zheng DO Bilirubin [Mass/Vol] 0.2 mg/dL Low 0.3-1.2 [facility] Comment on above: Performed By: #### C DP, CP, ALCB #### [facility] [place] [address] Pre Wave Assembler: Trevon Zheng DO Calcium [Mass/Vol] 9.5 mg/dL Normal 8.6-10.4 [facility] Comment on above: Performed By: #### C DP, CP, ALCB #### [facility] [place] [address] Pre Wave Assembler: Trevon Zheng DO Chloride [Moles/Vol] 104 mmol/L Normal 98-107 [facility] Comment on above: Performed By: #### C DP, CP, ALCB #### [facility] [place] [address] Pre Wave Assembler: Trevon Zheng DO CO2 [Moles/Vol] 28 mmol/L Normal 20-31 [facility] Comment on above: Performed By: #### C DP, CP, ALCB #### [facility] [address] [place] [address] Pre Wave Assembler: Trevon Zheng DO Creatinine [Mass/Vol] 1.0 mg/dL Normal 0.7-1.2 [facility] Comment on above: Performed By: #### C DP, CP, ALCB #### [facility] [address] [place] [address] Pre Wave Assembler: Trevon Zheng DO GFR/1.73 sq M.predicted among non-blacks MDRD (S/P/Bld) [Vol rate/Area] mL/min/{1.73_m2} Normal >60 [facility] Comment on above: Result Comment: These [...] renal tubular secretion. Performed By: #### C PETE OSWALD, ALCB #### [facility] [address] [facility] [place] [address] Pre Wave Assembler: Trevon Zheng DO Glucose [Mass/Vol] 86 mg/dL Normal 70-99 [facility] Comment on above: Performed By: #### C DAREK CP, ALCB #### [facility] [address] [facility] [place] [address] Pre Wave Assembler: Trevon Zheng DO Potassium [Moles/Vol] 3.7 mmol/L Normal 3.7-5.3 [facility] Comment on above: Performed By: #### C PETE OSWALD, ALCB #### [facility] [place] [address] Pre Wave Assembler: Trevon Zheng DO Protein [Mass/Vol] 6.7 g/dL Normal 6.4-8.3 [facility] Comment on above: Performed By: #### C PETE OSWALD, ALCB #### [facility] [address] [facility] [place] [address] Pre Wave Assembler: Trevon Zheng DO Sodium [Moles/Vol] 141 mmol/L Normal 135-144 [facility] Comment on above: Performed By: #### C DP, CP, ALCB #### [facility] [place] [address] Pre Wave Assembler: Trevon Zheng DO Urea nitrogen [Mass/Vol] 13 mg/dL Normal 6-20 [facility] Comment on above: Performed By: #### C DP, CP, ALCB #### [facility] [address] [place] [address] Pre Wave Assembler: Trevon Zheng DO Drug Scr, Abuse, Uron 2023 Amphetamine(s),Ur Negative Normal NEG [facility] Comment on above: Result Comment: (Positive cutoff 1000 ng/mL) Performed By: #### D AU #### [facility] [address] [place] [address] Pre Wave Assembler: Trevon Zheng DO Barbiturate(s),Ur Negative Normal NEG [facility] Comment on above: Result Comment: (Positive cutoff 200 ng/mL) Performed By: #### D AU #### [facility] [address] [place] [address] Pre Wave Assembler: Trevon Zheng DO Benzodiazepine(s) Negative Normal NEG [facility] Comment on above: Result Comment: (Positive cutoff 200 ng/mL) Performed By: #### D AU #### [facility] [address] [place] [address] Pre Wave Assembler: Trevon Zheng DO Cannabinoid(s),Ur Negative Normal [facility] Comment on above: Result Comment: (Positive cutoff 50 ng/mL) Performed By: #### D AU #### [facility] [address] [place] [address] Pre Wave Assembler: Trevon Zheng DO Cocaine Metabolite Negative Normal NEG [facility] Comment on above: Result Comment: (Positive cutoff 300 ng/mL) Performed By: #### D AU #### [facility] [address] [place] [address] Pre Wave Assembler: Trevon Zheng DO Fentanyl, Urine Negative Normal NEG [facility] Comment on above: Result Comment: (Positive cutoff 5 ng/ml) Performed By: #### D AU #### [facility] [address] [place] [address] Pre Wave Assembler: Trevon Zheng DO Interpretive Info Assay provides medical screening only. The absence of expected drug(s) and/or Normal [facility] Comment on above: Result Comment: meta bolite(s) may indicate diluted or adulterated urine, limitations of testing or timing of collection. Testing for legal purposes should be confirmed by another method. To request confirmation of test result, please call the lab within 7 days of sample submission. Performed By: #### D AU #### [facility] [address] [place] [address] Pre Wave Assembler: Trevon Zheng DO Methadone Ql (U) Negative Normal NEG [facility] Comment on above: Result Comment: (Positive cutoff 300 ng/mL) Performed By: #### D AU #### [facility] [address] [place] [address] Pre Wave Assembler: Trevon Zheng DO Opiate(s), Ur Negative Normal NEG [facility] Comment on above: Result Comment: (Positive cutoff 300 ng/mL) Performed By: #### D AU #### [facility] [address] [place] [address] Pre Wave Assembler: Trevon Zheng DO Oxycodone, Urine Negative Normal NEG [facility] Comment on above: Result Comment: (Positive cutoff 100 ng/mL) Performed By: #### D AU #### [facility] [address] [place] [address] Pre Wave Assembler: Trevon Zheng DO Phencyclidine, Ur Negative Normal NEG [facility] Comment on above: Result Comment: (Positive cutoff 25 ng/mL) Performed By: #### D AU #### [facility] [address] [place], [place] [address]e. [place] [address] Pre Wave Assembler: Trevon Zheng DO Ethanol Alcoholon 07-20-2023 Ethanol [Mass/Vol] mg/dL Normal <10 [facility] Comment on above: Performed By: #### C DP, CP, ALCB #### [facility] [address] [place] [address] Pre Wave Assembler: Trevon Zheng DO Ethanol percent <0.010 Normal [facility] Comment on above: Performed By: #### C DP, CP, ALCB #### [facility] [address] [facility] [place] [address] Pre Wave Assembler: Trevon Zheng DO TESTOSTERONE, TOTALon 2022 Testosterone [Mass/Vol] 893 ng/dL Normal 264-916 [facility] Comment on above: Result Comment: Adul t male reference interval is based on a population of healthy nonobese males (BMI <30) between 19 and 39 years old. Travfranky, et.al. JCEM 2017,102;6530-9828. PMID: [id number]. Performed By: #### T ESTTOT #### [facility] [address] [place] [address] Dr. Ro Pizano HEMOGLOBINon 10-18-2022 Hemoglobin (Bld) [Mass/Vol] 14.4 g/dL Normal 14.0-18.0 [facility] Comment on above: Performed By: #### H GB #### [facility] [address] [place] [address] Dr. Ro Pizano TESTOSTERONE, TOTALon 2021 Testosterone [Mass/Vol] 1281 ng/dL Critically high 264-916 [facility] Comment on above: Result Comment: Adul t male reference interval is based on a population of healthy nonobese males (BMI <30) between 19 and 39 years old. Guilherme, et.al. JCEM 2017,102;1191-9683. PMID: [id number]. Performed By: #### T ESTTOT #### [facility] [address] [place] [address] [address] [address] Ro Pizano HEMOGLOBINon 01-25-2022 Hemoglobin (Bld) [Mass/Vol] 13.5 g/dL Critically low 14.0-18.0 [facility] Comment on above: Performed By: #### H GB #### [facility] [address] [place] [address] Ro Pizano [facility] SARS-CoV-2 (COVID-19) RNA SKY+probe Ql (Unsp spec) Not detected Normal NOT DETECTED [facility] Comment on above: Result Comment: This test is not yet approved or cleared by the [place] FDA. When there are no FDA-approved or cleared tests available, and other criteria are met, FDA can make tests available under an emergency access mechanism called an Emergency Use Authorization (EUA). The EUA for this test is supported by the [place] of Health and Human Service's (HHS's) declaration [...] SARS-CoV-2. Performed By: #### C VDTB #### [facility] [address] [place], [place] [address] Dr. Ro Pizano Vital Signs Date Time Vital Sign Value Performing Clinician Faci lity 07-20-2023 15:02-0500 Body mass index (BMI) [Ratio] 24.96 kg/m2 Froilan Samuel CHANGE OF ADDRESS CLERK-BOOKMOBILE LIBRARIAN Work Phone: [facility] 07-20-2023 15:02-0500 Body weight 68.04 kg Froilan Samuel CHANGE OF ADDRESS CLERK-BOOKMOBILE LIBRARIAN Work Phone: [facility] 07-20-2023 15:02-0500 Diastolic blood pressure 78 mm[Hg] Froilan Reanna-Nossek CHANGE OF ADDRESS CLERK-BOOKMOBILE LIBRARIAN Work Phone: [facility] 07-20-2023 15:02-0500 Heart rate 99 /min Froilan Reanna-Nossek CHANGE OF ADDRESS CLERK-BOOKMOBILE LIBRARIAN Work Phone: [facility] 07-20-2023 15:02-0500 Systolic blood pressure 122 mm[Hg] Froilan Reanna-Nossek CHANGE OF ADDRESS CLERK-BOOKMOBILE LIBRARIAN Work Phone: [facility] Healthcare Encounters Encounter Date Encounter Type Care Provider Facility Start: 09-05-2023 End: 09-05-2023 ambulatory FITZ ARORA Not Available Start: 09-04-2023 End: 09-04-2023 ambulatory FROILAN Chelsi REANNA-NOSSEK Not Available Start: 08-08-2023 End: 08-08-2023 ambulatory FROILAN M REANNA-NOSSEK Not Available Start: 07-20-2023 End: 07-24-2023 Evaluation and management of inpatient [facility] Start: 07-20-2023 End: 07-20-2023 ambulatory FROILAN M REANNA-NOSSEK Not Available Start: 07-20-2023 End: 07-20-2023 Office outpatient visit 40 minutes Froilan M Reanna-Nossek CHANGE OF ADDRESS CLERK-BOOKMOBILE LIBRARIAN Work Phone: [facility] Comment on above: Bipolar 1 disorder, depressed, moderate (CMS/HCC); Anxiety disorder, unspecified type Start: 07-20-2023 Bamboo flowsheet Froilan M Fio r-Nossek CHANGE OF ADDRESS CLERK-BOOKMOBILE LIBRARIAN Work Phone: [facility] Start: 07-20-2023 Bamboo flowsheet Froilan M Fio r-Nossek CHANGE OF ADDRESS CLERK-BOOKMOBILE LIBRARIAN Work Phone: [facility] Start: 05-03-2023 End: 05-03-2023 ambulatory FROILAN M REANNA-NOSSEK Not Available Start: 10-18-2022 End: 10-19-2022 ambulatory EVERARDO PARK Facility:[facility] Start: 06-09-2022 End: 06-10-[address] EVERT STODDARD Facility:[facility] Start: 06-05-2022 End: 06-05-[address] AUGIE MANN Facility:[facility] Start: 01-25-2022 End: 01-26-2022 ambulatory SHAWNARENETTAScar CARLOS Facility:[facility] Start: 12-10-2021 End: 12-10-[address] YANA MEEHAN . Facility:[facility] Procedures Date Procedure Procedure Detail Performing Clinician Start: 10-18-2022 PSA screening EVERARDO FLORES Comment on above: Performed By: #### P SAD #### [facility] [address] [address] [address] Ro Pizano Start: 01-25-2022 PSA screening EVERARDO FLORES Comment on above: Performed By: #### P SAD #### [facility] [address] [address] [address] Ro Pizano Plan of Treatment Date Care Activity Detail Author Start: 02-03-2023 Influenza vaccination Influenza Vacc ine (#1) [facility] Payers Date Payer Category Payer Unknown BCBS BCBS [id number] [id number] 2021-Present [phone] [address] [place] [address] [id number] 1985 Unknown [id number]. 1985 Unknown [id number] 1985 Unknown [id number]. 1983 Unknown [id number] 1983 Unknown [id number] [id number]. 1983 Unknown [id number] 1985 Unknown [id number] [id number] 1983 Unknown [id number] [id number] 1983 Unknown [id number] [id number] 1983 Unknown [id number] [id number] 1983 Unknown [id number] [id number] 1985 Unknown [id number] 1961 Unknown [id number] Social History Date Type Detail Facility Start: 11-29-2022 Tobacco smoking status [facility] Never sm oked tobacco [facility] Start: [...] Gender identity Identifies as male gender (finding) [facility] History of Present illness Narrative 07-20-2023 Froilan Samuel, MICH-BOOKMOBILE LIBRARIAN - 07/20/2023 3:00 PM Bertha Beaulieu LPN - 07/20/2023 3:00 PM EST Note Date & Type Note Facility 07-20-2023 History of Presen t illness Narrative Images from the original note were not included. Travon Tijerina 36 Y old Male,: 1985 [address] [place], [place]-[address] Home: Guarantor:Travon Tijerina Insurance:Yaritza PCP:Myah Pak Referring:Froilan Narvaez History of Present Illness This is a [...] difficulties. Working night, Working 12 hours at [employer](working nights),. 4 days a week. Tired of [employer] work. Quit gym. Next week will be on days. Works at [employer]. Denies anxiety. Sleeping 6-7 hours. Medication compliant. [...] Marital status . Occupation: Works full-time at [employer]. Pets: one dog. Sexual abuse: none. 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 felt safe to transfer patient to hospital and agreed to go to [facility]. Patient agreed need to be admitted and agreed to stay safe during transport. Face to face/documentation/review of record= 50min Patient was monitored while waited for to come. F/U post discharge Note generated by [employer] EMR/PM Software ([email or web address]) Having passive thoughts of not wanting to live, having financial stress. documented in this encounter [facility] Clinical Note 06-09-2022 Note Date & Type [...] by: EVERT STODDARD Date: 2022-06-09 14:37 [facility] Clinical Note 06-05-2022 Note Date & Type [...] of ankle joint. Electronically authenticated by: AUGIE AMNN Date: 2022-06-05 18:30 [facility] Evaluation note Note Date & Type Note Facility Evaluation note Diagnosis Bipolar 1 disorder, depressed, moderate (CMS/HCC) Anxiety disorder, unspecified type documented in this encounter [facility] Healthcare Summary Purpose Family History No Family History Records FoundNo Family History Records FoundNo Family History Records Found Advance Directives No Advanced Directives Records FoundNo Advanced Directives Records FoundNo Advanced Directives Records Found Additional Source Comments (unrecognized sect ion and content) No Status Records FoundNo Status Records FoundNo Status Records Found INFORMATION SOURCE (unrecogn ized section and content) DATE CREATED AUTHOR 10/19/2022 [facility] DATE CREATED AUTHOR AUTHOR'S ORGANIZ ATION 07/24/2023 [facility] DATE CREATED AUTHOR AUTHOR'S ORGANIZ ATION 09/06/2023 [facility] dical Specialists EPIC Care Teams (unrecognized sec tion and content) [employer] Supervisor Relationship Specialty Start Date End Date Froilan Samuel APRN-BOOKMOBI[employer] LIBRARIAN [address] [place] [address] PCP - [employer] 09/03/21 Myah Pak MD [address] [place] [id number] PCP - General Physician Bag Bundler 11/14/22 [employer] Supervisor Relationship Specialty Start Date End Date [facility]an [facility] [address] [id number] PCP - [employer] 09/03/21 Myah Pak MD [address] [place] [id number] PCP - General Physician Bag Bundler 11/14/22 Reason for Visit (unrecogniz ed section [...] BE BASED ON THE PRIMARY CLINICAL RECORDS. [facility] [address] [facility]. provides no warranty or guarantee of the accuracy or completeness of information in this document.
== END 2023-11-14 08:02 | disposition home or self-care (01) ==
LOC: PST 08:01
PROVIDERS: PCP Nurse Practitioner Family; Visit Provider Student in an Organized Health Care Education/Training Program
DX: Z01.810 Encounter for preprocedural cardiovascular examination (principal); M23.91 Unspecified internal derangement of right knee
CPT/HCPCS: 71046

== ENCOUNTER 2023-11-27 08:55 | Day surgery (SDC) | payer BC, SELFPAY ==
[2023-11-14 08:10] VITALS: BP 122/72; PULSE 60; TEMP 36.4; O2SAT 97; BMI 25.8
[2023-11-27] VITALS (12 sets, daily range): BP systolic 104–135; BP diastolic 66–90; PULSE 50–62; TEMP 36.1; O2SAT 98–99; BMI 23.4
--- OUTSIDE RECORDS SUMMARY | 2023-11-27 09:00 | XMS_ITS | CCD ---
Author Organization [facility] CliniSytx Care Team Providers Care Aviation Operations Specialist Name Role Phone EVERARDO PARK Primary Care Unavailable CARLOS, AHMAD Admitting Unavailable CARLOS, AHMAD Attending Unavailable CARLOS, AHMAD Consulting Unavailable DARVINY ., DR MILLAN Admitting Unavailable VIVIAN, EVERARDO Primary Care Unavailable DARVINY ., DR MILLAN Attending Unavailable HOY ., DR MILLAN Consulting Unavailable VIVIAN, EVERARDO Admitting Unavailable EVERARDO PARK Attending Unavailable [...] Pak MD Primary Care Provider EVERARDO PARK Primary Care Unavailable THUMMALSARAY BEST Attending Unavaila fatou ELLE, NEHEMIAH S Consulting Unavailable SARAY SIMMONS Admitting Unavaila FROILAN Ceron Attending Unavailab le FROILAN SAMUEL Attending Unavailab le REANNA-FROILAN SALEEM Attending Unavailab le FITZ ARORA Attending Unavailable FROILAN SAMUEL Attending Unavailab le Medications Current Medications Medication [...] 06-07-2022 Episodic Other aftercare (1 source) Other intermediate (current) drug therapy; Translations: [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 Basophil 0.00 k/uL Normal 0.0-0.2 [facility] Comment on above: Performed By: #### C PETE OSWALD, ALCB #### [facility] [address] [place] [address] Drier: Trevon Zheng DO Abs.Neutrophil (Seg) 1.16 k/uL Low 1.3-9.1 [facility] Comment on above: Performed By: #### C PETE OSWALD, ALCB #### [facility] [address] [place] [address] Drier: Trevon Zheng DO Basophils/100 WBC (Bld) 0 % Normal 0-2 [facility] Comment on above: Performed By: #### C DP, CP, ALCB #### [facility] [address] [place] [address] Drier: Trevon Zheng DO Eosinophils (Bld) [#/Vol] 0.03 10*3/uL Normal 0.0-0.4 [facility] Comment on above: Performed By: #### C DP, CP, ALCB #### [facility] [address] [place] [address] Drier: Trevon Zheng DO Eosinophils/100 WBC (Bld) 1 % Normal 0-4 [facility] Comment on above: Performed By: #### C DP, CP, ALCB #### [facility][note 3]0 [facility] [place] [address] Drier: Trevon Zheng DO Lymphocytes (Bld) [#/Vol] 1.65 10*3/uL Normal 1.0-4.8 [facility] Comment on above: Performed By: #### C DP, CP, ALCB #### [facility][note 3]0 [facility] [place] [address] Drier: Trevon Zheng DO Lymphocytes/100 WBC (Bld) 50 % High 24-44 [facility] Comment on above: Performed By: #### C DP, CP, ALCB #### [facility][note 3]0 [facility] [place] [address] Drier: Trevon Zheng DO Monocytes (Bld) [#/Vol] 0.46 10*3/uL Normal 0.1-1.3 [facility] Comment on above: Performed By: #### C DP, CP, ALCB #### [facility][note 3]0 [facility] [place] [address] Drier: Trevon Zheng DO Monocytes/100 WBC (Bld) 14 % High 1-7 [facility] Comment on above: Performed By: #### C DP, CP, ALCB #### [facility] [address] [place] [address] Drier: Trevon Zheng DO Morphology Young (Bld) [Interp] Normal Normal [facility] Comment on above: Performed By: #### C DP, CP, ALCB #### [facility][note 3][address] [place] [address] Drier: Trevon Zheng DO Neutrophil (Seg) 35 % Low 36-66 [facility] Comment on above: Performed By: #### C DP, CP, ALCB #### [facility] [address] [place] [address] Drier: Trevon Zheng DO Erythrocyte distribution width (RBC) [Ratio] 13.6 % Normal 11.5-14.9 [facility] Comment on above: Performed By: #### C DAREK, PETE, ALCB #### [facility] [address] [place] [address] Drier: Trevon Zheng DO Hematocrit (Bld) [Volume fraction] 36.7 % Low 41-53 [facility] Comment on above: Performed By: #### C DP, CP, ALCB #### [facility][note 3][address] [place] [address] Drier: Trevon Zheng DO Hemoglobin (Bld) [Mass/Vol] 12.7 g/dL Low 13.5-17.5 [facility] Comment on above: Performed By: #### C DP, CP, ALCB #### [facility][note 3][address] [place] [address] Drier: Trevon Zheng DO MCH (RBC) [Entitic mass] 31.0 pg Normal 26-34 [facility] Comment on above: Performed By: #### C DP, CP, ALCB #### [facility] [address] [place] [address] Drier: Trevon Zheng DO MCHC (RBC) [Mass/Vol] 34.6 g/dL Normal 31-37 [facility] Comment on above: Performed By: #### C DP, CP, ALCB #### [facility] [address] [place] [address] Drier: Trevon Zheng DO MCV (RBC) [Entitic vol] 89.5 fL Normal 80-100 [facility] Comment on above: Performed By: #### C DP, CP, ALCB #### [facility] [address] [place] [address] Drier: Trevon Zheng DO Platelet mean volume (Bld) [Entitic vol] 9.2 fL Normal 6.0-12.0 [facility] Comment on above: Performed By: #### C DP, CP, ALCB #### [facility] [address] [place] [address] Drier: Trevon Zheng DO Platelets (Bld) [#/Vol] 219 10*3/uL Normal 150-450 [facility] Comment on above: Performed By: #### C DP, CP, ALCB #### [facility] [address] [place] [address] Drier: Trevon Zheng DO RBC (Bld) [#/Vol] 4.10 10*6/uL Low 4.5-5.9 [facility] Comment on above: Performed By: #### C DP, CP, ALCB #### [facility] [address] [place] [address] Drier: Trevon Zheng DO WBC (Bld) [#/Vol] 3.3 10*3/uL Low 3.5-11.0 [facility] Comment on above: Performed By: #### C DP, CP, ALCB #### [facility] [address] [place] [address] Drier: Trevon Zheng DO Comp Metabolic Profon 2023 Albumin [Mass/Vol] 4.2 g/dL Normal 3.5-5.2 [facility] Comment on above: Performed By: #### C DP, CP, ALCB #### [facility] [address] [facility] [place] [address] Drier: Trevon Zheng DO Alkaline Phos 70 U/L Normal 40-129 [facility] Comment on above: Performed By: #### C DP, CP, ALCB #### [facility] [address] [facility] [place] [address] Drier: Trevon Zheng DO ALT [Catalytic activity/Vol] 18 U/L Normal 5-41 [facility] Comment on above: Performed By: #### C DP, CP, ALCB #### [facility][note 3]0 [facility] [place] [address] Drier: Trevon Zheng DO Anion gap [Moles/Vol] 9 mmol/L Normal 9-17 [facility] Comment on above: Performed By: #### C DP, CP, ALCB #### [facility] [address] [facility] [place] [address] Drier: Trevon Zheng DO AST [Catalytic activity/Vol] 29 U/L Normal <40 [facility] Comment on above: Performed By: #### C DP, CP, ALCB #### [facility] [address] [place] [address] Drier: Trevon Zheng DO Bilirubin [Mass/Vol] 0.2 mg/dL Low 0.3-1.2 [facility] Comment on above: Performed By: #### C DP, CP, ALCB #### [facility] [address] [place] [address] Drier: Trevon Zheng DO Calcium [Mass/Vol] 9.5 mg/dL Normal 8.6-10.4 [facility] Comment on above: Performed By: #### C DP, CP, ALCB #### [facility] [address] [place] [address] Drier: Trevon Zheng DO Chloride [Moles/Vol] 104 mmol/L Normal 98-107 [facility] Comment on above: Performed By: #### C DP, CP, ALCB #### [facility] [address] [place] [address] Drier: Trevon Zheng DO CO2 [Moles/Vol] 28 mmol/L Normal 20-31 [facility] Comment on above: Performed By: #### C DP, CP, ALCB #### [facility] [address] [place] [address] Drier: Trevon Zheng DO Creatinine [Mass/Vol] 1.0 mg/dL Normal 0.7-1.2 [facility] Comment on above: Performed By: #### C DP, CP, ALCB #### [facility] [address] [place] [address] Drier: Trevon Zheng DO GFR/1.73 sq M.predicted among non-blacks MDRD (S/P/Bld) [Vol rate/Area] mL/min/{1.73_m2} Normal >60 [facility] Comment on above: Result Comment: These results [...] By: #### C PETE OSWALD, ALCB #### [facility] [address] [facility] [place] [address] Drier: Trevon Zheng DO Glucose [Mass/Vol] 86 mg/dL Normal 70-99 [facility] Comment on above: Performed By: #### C PETE OSWALD, ALCB #### [facility] [address] [place] [address]. [place] [address] Drier: Trevon Zheng DO Potassium [Moles/Vol] 3.7 mmol/L Normal 3.7-5.3 [facility] Comment on above: Performed By: #### C PETE OSWALD, ALCB #### [facility] [address] [place] [address]. [place] [address] Drier: Trevon Zheng DO Protein [Mass/Vol] 6.7 g/dL Normal 6.4-8.3 [facility] Comment on above: Performed By: #### C PETE OSWALD, ALCB #### [facility] [address] [place] [address]. [place] [address] Drier: Trevon Zheng DO Sodium [Moles/Vol] 141 mmol/L Normal 135-144 [facility] Comment on above: Performed By: #### C PETE OSWALD, ALCB #### [facility] [address] [place] [address]. [place] [address] Drier: Trevon Zheng DO Urea nitrogen [Mass/Vol] 13 mg/dL Normal 6-20 [facility] Comment on above: Performed By: #### C DP, CP, ALCB #### [facility] [address] [place] [address] Drier: Trevon Zheng DO Drug Scr, Abuse, Uron 2023 Amphetamine(s),Ur Negative Normal NEG [facility] Comment on above: Result Comment: (Positive cutoff 1000 ng/mL) Performed By: #### D AU #### [facility] [address] [place] [address] Drier: Trevon Zheng DO Barbiturate(s),Ur Negative Normal NEG [facility] Comment on above: Result Comment: (Positive cutoff 200 ng/mL) Performed By: #### D AU #### [facility] [address] [place] [address] Drier: Trevon Zheng DO Benzodiazepine(s) Negative Normal NEG [facility] Comment on above: Result Comment: (Positive cutoff 200 ng/mL) Performed By: #### D AU #### [facility] [address] [place] [address] Drier: Trevon Zheng DO Cannabinoid(s),Ur Negative Normal NEG [facility] Comment on above: Result Comment: (Positive cutoff 50 ng/mL) Performed By: #### D AU #### [facility] [address] [place] [address] Drier: Trevon Zheng DO Cocaine Metabolite Negative Normal NEG [facility] Comment on above: Result Comment: (Positive cutoff 300 ng/mL) Performed By: #### D AU #### [facility] [address] [place] [address] Drier: Trevon Zheng DO Fentanyl, Urine Negative Normal NEG [facility] Comment on above: Result Comment: (Positive cutoff 5 ng/ml) Performed By: #### D AU #### [facility] [address] [place] [address] Drier: Trevon Zheng DO Interpretive Info Assay provides medical screening only. The absence of expected drug(s) and/or Normal [facility] Comment on above: Result Comment: meta bolite(s) may indicate diluted or adulterated urine, limitations of testing or timing of collection. Testing for legal purposes should be confirmed by another method. To request confirmation of test result, please call the lab within 7 days of sample submission. Performed By: #### D AU #### [facility] [address] [place] [address] Drier: Trevon Zheng DO Methadone Ql (U) Negative Normal NEG [facility] Comment on above: Result Comment: (Positive cutoff 300 ng/mL) Performed By: #### D AU #### [facility] [address] [place] [address] Drier: Trevon Zheng DO Opiate(s), Ur Negative Normal NEG [facility] Comment on above: Result Comment: (Positive cutoff 300 ng/mL) Performed By: #### D AU #### [facility] [address] [place] [address] Drier: Trevon Zheng DO Oxycodone, Urine Negative Normal NEG [facility] Comment on above: Result Comment: (Positive cutoff 100 ng/mL) Performed By: #### D AU #### [facility] [address] [place] [address] Drier: Trevon Zheng DO Phencyclidine, Ur Negative Normal NEG [facility] Comment on above: Result Comment: (Positive cutoff 25 ng/mL) Performed By: #### D AU #### [facility] [address] [place] [address] Drier: Trevon Zheng DO Ethanol Alcoholon 07-20-2023 Ethanol [Mass/Vol] mg/dL Normal <10 [facility] Comment on above: Performed By: #### C DP, CP, ALCB #### [facility] [address] [place] [address] Drier: Trevon Zheng DO Ethanol percent <0.010 Normal [facility] Comment on above: Performed By: #### C DP, CP, ALCB #### [facility] [address] [place] [address] Drier: Trevon Zheng DO TESTOSTERONE, TOTALon 2022 Testosterone [Mass/Vol] 893 ng/dL Normal 264-916 [facility] Comment on above: Result Comment: Adul t male reference interval is based on a population of healthy nonobese males (BMI <30) between 19 and 39 years old. Guilherme, et.al. JCEM 2017,102;9363-1183. PMID: [id number]. Performed By: #### T ESTTOT #### [facility] [address] [place] [address] Dr. Ro Pizano HEMOGLOBINon 10-18-2022 Hemoglobin (Bld) [Mass/Vol] 14.4 g/dL Normal 14.0-18.0 [facility] Comment on above: Performed By: #### H GB #### [facility] [address] [place] [address] Dr. Ro Pizano TESTOSTERONE, TOTALon 2021 Testosterone [Mass/Vol] 1281 ng/dL Critically high 264-916 [facility] Comment on above: Result Comment: Adul t male reference interval is based on a population of healthy nonobese males (BMI <30) between 19 and 39 years old. Guilherme, et.al. JCEM 2017,102;0092-3451. PMID: [id number]. Performed By: #### T ESTTOT #### [facility] [address] [place] [address] Dr. Ro Pizano HEMOGLOBINon 01-25-2022 Hemoglobin (Bld) [Mass/Vol] 13.5 g/dL Critically low 14.0-18.0 [facility] Comment on above: Performed By: #### H GB #### [facility] [address] [place] [address] Dr. Ro Pizano Covid-19 PCR ([facility])on SARS-CoV-2 (COVID-19) RNA SKY+probe Ql (Unsp spec) Not detected Normal NOT DETECTED [facility] Comment on above: Result Comment: This test is not yet approved or cleared by the [place] FDA. When there are no FDA-approved or cleared tests available, and other criteria are met, FDA can make tests available under an emergency access mechanism called an Emergency Use Authorization (EUA). The EUA for this test is supported by the [place] of Health and Human Service's (HHS's) declaration [...] SARS-CoV-2. Performed By: #### C VDTB #### [facility] [address] [place] [address] Dr. Ro Pizano Vital Signs Date Time Vital Sign Value Performing Clinician Faci lity 07-20-2023 15:02-0500 Body mass index (BMI) [Ratio] 24.96 kg/m2 Froilan Samuel ENGINEERING FACULTY-ROUTING MACHINE OPERATOR Work Phone: [facility] 07-20-2023 15:02-0500 Body weight 68.04 kg Froilan Samuel ENGINEERING FACULTY-ROUTING MACHINE OPERATOR Work Phone: [facility] 07-20-2023 15:02-0500 Diastolic blood pressure 78 mm[Hg] Froilan Reanna-Nossek ENGINEERING FACULTY-ROUTING MACHINE OPERATOR Work Phone: [facility] 07-20-2023 15:02-0500 Heart rate 99 /min Froilan Reanna-Nossek ENGINEERING FACULTY-ROUTING MACHINE OPERATOR Work Phone: [facility] 07-20-2023 15:02-0500 Systolic blood pressure 122 mm[Hg] Froilan Reanna-Nossek ENGINEERING FACULTY-ROUTING MACHINE OPERATOR Work Phone: [facility] Encounters Encounter Date Encounter Type Care Provider Facility Start: 09-05-2023 End: 09-05-2023 ambulatory FITZ ARORA Not Available Start: 09-04-2023 End: 09-04-2023 ambulatory FROILAN Chelsi REANNA-NOSSEK Not Available Start: 08-08-2023 End: 08-08-2023 ambulatory FROILAN M REANNA-NOSSEK Not Available Start: 07-20-2023 End: 07-24-2023 Evaluation and management of inpatient [facility] Start: 07-20-2023 End: 07-20-2023 ambulatory FROILAN M REANNA-NOSSEK Not Available Start: 07-20-2023 End: 07-20-2023 Office outpatient visit 40 minutes Froilan M Reanna-Nossek ENGINEERING FACULTY-ROUTING MACHINE OPERATOR Work Phone: [facility] Comment on above: Bipolar 1 disorder, depressed, moderate (CMS/HCC); Anxiety disorder, unspecified type Start: 07-20-2023 Bamboo flowsheet Froilan M Fio r-Nossek ENGINEERING FACULTY-ROUTING MACHINE OPERATOR Work Phone: [facility] Start: 07-20-2023 Bamboo flowsheet Froilan M Fio r-Nossek ENGINEERING FACULTY-ROUTING MACHINE OPERATOR Work Phone: [facility] Start: 05-03-2023 End: 05-03-2023 ambulatory FROILAN M REANNA-NOSSEK Not Available Start: 10-18-2022 End: 10-19-2022 ambulatory [facility] Facility: Start: 06-09-2022 End: 06-10-[address] EVERT STODDARD Facility:[facility]1 Start: 06-05-2022 End: 06-05-[address] AUGIE MANN Facility:[facility] Start: 01-25-2022 End: 01-26-2022 ambulatory SHAWNARENETTAScar CARLOS Facility:[facility] Start: 12-10-2021 End: 12-10-[address] YANA MEEHAN . Facility:[facility] Procedures Date Procedure Procedure Detail Performing Clinician Start: 10-18-2022 PSA screening EVERARDO FLORES Comment on above: Performed By: #### P SAD #### [facility] [address] [address] [address] Ro Pizano Start: 01-25-2022 PSA screening EVERARDO FLORES Comment on above: Performed By: #### P SAD #### [facility] [address] [address] [address] Ro Pizano Plan of Treatment Date Care Activity Detail Author Start: 02-03-2023 Influenza vaccination Influenza Vacc ine (#1) [facility] Payers Date Payer Category Payer Unknown BCBS BCBS xxxxxx [id number] 2021-Present [phone] [address] [place] [address] [id number] 1985 Unknown [id number]. 1983 Unknown [id number]. 1983 Unknown [id number] 07.21.830.1.129320.3.579.2. 1983 Unknown [id number] 07.21.830.1.482797.3.579.2. 1983 Unknown [id number] 1983 Unknown [id number] 1983 Unknown [id number] [id number] 1983 Unknown [id number] [id number] 1983 Unknown [id number] 2.16.840.1.389815.3.579.2.9 1983 Unknown [id number] 2.16.840.1.374672.3.579.2.9 1983 Unknown [id number] 2.16.840.1.807593.3.579.2.9 1983 Unknown [id number] 1959 Unknown [id number] Social History Date Type Detail Facility Start: 11-29-2022 Tobacco smoking status MAIS Never sm oked tobacco [facility] Start: [...] of Present illness Narrative 07-20-2023 Froilan Samuel, MICH-ROUTING MACHINE OPERATOR - 07/20/2023 3:00 PM Bertha Beaulieu LPN - 07/20/2023 3:00 PM EST Note Date & Type Note Facility 07-20-2023 History of Presen t illness Narrative Images from the original note were not included. Travon Mccartney 36 Y old Male,: 1985 [address] [facility] [id number] Home: Guarantor:Travon Mccartney Insurance:Yaritza PCP:Myah Pak Referring:Froilan Saleem History of [...] difficulties. Working night, Working 12 hours at [employer](working nights),. 4 days a week. Tired of [employer] work. Quit gym. Next week will be on days. Works at [employer]. Denies anxiety. Sleeping 6-7 hours. Medication compliant. [...] Marital status . Occupation: Works full-time at [employer]. Pets: one dog. Sexual abuse: none. Verbal [...] be sending to hospital - called to black pickler. felt safe to transfer patient to hospital and agreed to go to [facility]. Patient agreed need to be admitted and agreed to stay safe during transport. Face to face/documentation/review of record= 50min Patient was monitored while waited for to come. F/U post discharge Note generated by [employer] EMR/PM Software ([email or web address]) Having passive thoughts of not wanting to live, having financial stress. documented in this encounter [facility] Clinical Note 06-09-2022 Note Date & Type [...] by: EVERT STODDARD Date: 2022-06-09 14:37 [facility] Clinical Note 06-05-2022 Note Date & [...] by: AUGIE MANN Date: 2022-06-05 18:30 [facility] Evaluation note Note Date & Type [...] and content) DATE CREATED AUTHOR 10/19/2022 [facility] DATE CREATED AUTHOR AUTHOR'S ORGANIZ ATION 07/24/2023 [facility] DATE CREATED AUTHOR AUTHOR'S ORGANIZ ATION 09/06/2023 [facility] dical Specialists EPIC Care Teams (unrecognized sec tion and content) Aviation Operations Specialist Relationship Specialty Start Date End Date Froilan Samuel ENGINEERING FACULTY-ROUTING MACHINE OPERATOR [address] [place] [address] PCP - [employer] 09/03/21 Myah Pak MD [address] [place] [id number] PCP - General Physician Stave And Bolt Equalizer 11/14/22 Aviation Operations Specialist Relationship Specialty Start Date End Date Froilan Samuel, ENGINEERING FACULTY-ROUTING MACHINE OPERATOR [address] [address] PCP - [employer] 09/03/21 Myah Pak MD [address] [place] [id number] PCP - General Physician [employer] B[employer] Equalizer 11/14/22 Reason for Visit (unrecogniz ed section [...] BE BASED ON THE PRIMARY CLINICAL RECORDS. [facility] [employer] [facility]. provides no warranty or guarantee of the accuracy or completeness of information in this document.
[2023-11-27] MEDS: LACTATED RINGER'S SOLUTION 1,000 ML 50 ML IV (09:19)
[2023-11-27] MEDS: CEFAZOLIN SODIUM/DEXTROSE 2 GM/50 ML PIGGYBACK IV (10:01)
[2023-11-27] MEDS: BUPIVACAINE HCL 0.5% PF 50 MG/10 ML VIAL 20 ML INJ (10:57)
--- NOTE | 2023-11-27 11:13 | PM.ORPRC ---
Procedure Note Date of procedure: 11/27/23 Pre-op diagnosis: Right knee Medial meniscus tear Post-op diagnosis: other (Right knee medial meniscus tear and right knee plica) Procedure: Patient taken to the operative suite and transferred to the hospital bed and underwent general anesthesia without any complications. We then proceeded to prep and drape the right lower extremity in usual sterile fashion. A timeout was had the patient, procedure, operative site was confirmed and all were in agreement in the OR. Patient was given prophylactic Ancef. We then exsanguinated the limb. We then performed a diagnostic arthroscopy. We entered the patellofemoral pouch demonstrated no abnormalities. There was a large medial sided plica scar band draping the medial femoral condyle. It was causing some abrasion which was documented with a photograph. We elected to proceed this as this could be causing some of his medial sided pain. We then examined the medial gutter which demonstrated no abnormality. We then used a probe to probe the medial meniscus there was a flap tear present on the body to anterior horn of the medial meniscus. We then gently used a shaver to shave this down to a stable rim. Once satisfied with our debridement of the meniscus and plica we examined the remaining of the knee. The ACL was noted to be in good condition. The lateral compartment demonstrated no chondral abnormalities and no meniscal tear. The lateral gutter was also clear. The medial compartment did demonstrate some mild cartilage cartilage fraying at the margin of where the plica band was rubbing. We then proceeded to exsanguinate all of the arthroscopic fluid from the knee. Articular block was performed utilizing core percent Marcaine plain. Incisions were closed with 3-0 nylon. Soft sterile dressings were applied. Patient was taken to the PACU in stable condition. Postoperative plan will be weightbearing as tolerated with crutches. Follow-up in the office in 2 weeks Anesthesia: General-LMA Surgeon: Adonay Lee Estimated blood loss (mL): 10 IV fluids (mL): 1,000 Urine output (mL): 0 Pathology: none sent Condition: stable Disposition: same day
[2023-11-27] MEDS: DICLOFENAC SODIUM 25 MG TABLET.DR 75 MG PO (12:08)
== END 2023-11-27 12:45 | disposition home or self-care (01) ==
PROVIDERS: PCP Nurse Practitioner Family; Visit Provider Student in an Organized Health Care Education/Training Program
PROC: (CPT 1400; principal; 2023-11-27 10:00)
DX: S83.241A Other tear of medial meniscus, current injury, right knee, initial encounter (principal); M67.51 Plica syndrome, right knee; Z87.891 Personal history of nicotine dependence; F31.9 Bipolar disorder, unspecified
CPT/HCPCS: 29881; J0665; J0690; J1100; J1885; J2250; J2405; J2704; J3010

== ENCOUNTER 2024-01-01 10:02 | Outpatient (RCR) | payer BC, SELFPAY | END 2024-02-21 10:16 | disposition home or self-care (01) | LOC: PT 10:02 | PROVIDERS: PCP Nurse Practitioner Family; Visit Provider Student in an Organized Health Care Education/Training Program | DX: Z47.89 Encounter for other orthopedic aftercare (principal) | CPT/HCPCS: 97110; 97112; 97162 ==

== ENCOUNTER 2024-03-26 14:33 | Outpatient (OUT) | payer BC, SELFPAY ==
--- OUTSIDE RECORDS SUMMARY | 2024-03-26 14:36 | XMS_ITS | CCD ---
Author Organization [facility] Care Team Providers Care Dtp Operator Name Role Phone EVERARDO PARK Primary Care [...] Care Unavailable GENE CABRAL Consulting Unavailable Reanna-Nossek Froilan MARTINEZ Unavailable Myah Pak MD Primary Care Provider EVERARDO PARK S Primary Care Unavailable THUMMALSARAY BEST Attending Unavaila NEHEMIAH Hardin S Consulting Unavailable SARAY SIMMONS Admitting Unavaila FROILAN Ceron Attending Unavailab le REANNA-NOSFROILAN RODRIGUEZ Attending Unavailab FITZ Cunha Attending Unavailable REANNAFROILAN CAGE Attending Unavailab le REANNA-NOSFROILAN RODRIGUEZ Attending Unavailab le REANNA-NOSFROILAN RODRIGUEZ Attending Unavailab le REANNA-NOSSEK, FROILAN M Attending Unavailab le Medications Current Medications Medication [...] 06-07-2022 Episodic Other aftercare (1 source) Other shelter (current) drug therapy; Translations: [OTH PARANORMAL INVESTIGATOR CURRENT DRUG THERAPY] Onset: 06-07-2022 Episodic Other [...] Basophil 0.00 k/uL Normal 0.0-0.2 [facility] Comment on above: Performed By: #### C DP, CP, ALCB #### [facility] [address] [place] [address] [employer]wear Factory Worker: Trevon Zheng DO Abs.Neutrophil (Seg) 1.16 k/uL Low 1.3-9.1 [facility] Comment on above: Performed By: #### C DP, CP, ALCB #### [facility] [address] [place] [address] [employer]wear Factory Worker: Trevon Zheng, DO Basophils/100 WBC (Bld) 0 % Normal 0-2 [facility] Comment on above: Performed By: #### C DP, CP, ALCB #### [facility] [address] [place] [address] [employer]wear Factory Worker: Trevon Zheng DO Eosinophils (Bld) [#/Vol] 0.03 10*3/uL Normal 0.0-0.4 [facility] Comment on above: Performed By: #### C DP, CP, ALCB #### [facility] [address] [facility] [place] [address] [employer]wear Factory Worker: Trevon Zheng DO Eosinophils/100 WBC (Bld) 1 % Normal 0-4 [facility] Comment on above: Performed By: #### C DP, CP, ALCB #### [facility] [address] [facility] [place] [address] [employer]wear Factory Worker: Trevon Zheng DO Lymphocytes (Bld) [#/Vol] 1.65 10*3/uL Normal 1.0-4.8 [facility] Comment on above: Performed By: #### C DP, CP, ALCB #### [facility] [facility] [place] [address] [employer]wear Factory Worker: Trevon Zheng DO Lymphocytes/100 WBC (Bld) 50 % High 24-44 [facility] Comment on above: Performed By: #### C DP, CP, ALCB #### [facility] [address] [facility] [place] [address] [employer] Factory Worker: Trevon Zheng DO Monocytes (Bld) [#/Vol] 0.46 10*3/uL Normal 0.1-1.3 [facility] Comment on above: Performed By: #### C DP, CP, ALCB #### [facility] [address] [place] [address] [employer]wear Factory Worker: Trevon Zheng DO Monocytes/100 WBC (Bld) 14 % High 1-7 [facility] Comment on above: Performed By: #### C DP, CP, ALCB #### [facility] [address] [facility] [place] [address] [employer] Worker: Trevon Zheng DO Morphology Young (Bld) [Interp] Normal Normal [facility] Comment on above: Performed By: #### C DP, CP, ALCB #### [facility] [place] [address] [employer] Factory Worker: rTevon Zheng DO Neutrophil (Seg) 35 % Low 36-66 [facility] Comment on above: Performed By: #### C DP, CP, ALCB #### [facility] [facility] [place] [address] [employer] Worker: Trevon Zheng DO Erythrocyte distribution width (RBC) [Ratio] 13.6 % Normal 11.5-14.9 [facility] Comment on above: Performed By: #### C DP, CP, ALCB #### [facility] [place] [address] [employer] Factory Worker: Trevon Zheng DO Hematocrit (Bld) [Volume fraction] 36.7 % Low 41-53 [facility] Comment on above: Performed By: #### C DP, CP, ALCB #### [facility] [facility] [place] [address] [employer] Factory Worker: Trevon Zheng DO Hemoglobin (Bld) [Mass/Vol] 12.7 g/dL Low 13.5-17.5 [facility] Comment on above: Performed By: #### C DP, CP, ALCB #### [facility] [address] [place] [address] [employer] Worker: Trevon Zheng DO MCH (RBC) [Entitic mass] 31.0 pg Normal 26-34 [facility] Comment on above: Performed By: #### C DP, CP, ALCB #### [facility] [address] [place] [address] [employer] Worker: Trevon Zheng DO MCHC (RBC) [Mass/Vol] 34.6 g/dL Normal 31-37 [facility] Comment on above: Performed By: #### C DP, CP, ALCB #### [facility] [address] [place] [address] [employer] Worker: Trevon Zheng DO MCV (RBC) [Entitic vol] 89.5 fL Normal 80-100 [facility] Comment on above: Performed By: #### C DP, CP, ALCB #### [facility] [address] [place] [address] [employer] Worker: Trevon Zheng DO Platelet mean volume (Bld) [Entitic vol] 9.2 fL Normal 6.0-12.0 [facility] Comment on above: Performed By: #### C DP, PETE, ALCB #### [facility] [address] [place] [address] [employer] Worker: Trevon Zheng DO Platelets (Bld) [#/Vol] 219 10*3/uL Normal 150-450 [facility] Comment on above: Performed By: #### C DP, CP, ALCB #### [facility] [address] [place] [address] [employer] Worker: Trevon Zheng DO RBC (Bld) [#/Vol] 4.10 10*6/uL Low 4.5-5.9 [facility] Comment on above: Performed By: #### C DP, CP, ALCB #### [facility] [address] [place] [address] [employer] Worker: Trevon Zheng DO WBC (Bld) [#/Vol] 3.3 10*3/uL Low 3.5-11.0 [facility] Comment on above: Performed By: #### C DP, CP, ALCB #### [facility] [address] [place] [address] [employer] Worker: Trevon Zheng DO Comp Metabolic Profon 2023 Albumin [Mass/Vol] 4.2 g/dL Normal 3.5-5.2 [facility] Comment on above: Performed By: #### C DP, CP, ALCB #### [facility] [facility] [place] [address] [employer]wear [employer] Worker: Trevon Zheng DO Alkaline Phos 70 U/L Normal 40-129 [facility] Comment on above: Performed By: #### C DP, CP, ALCB #### [facility] [facility] [place] [address] [employer]wear Factory Worker: Trevon Zheng DO ALT [Catalytic activity/Vol] 18 U/L Normal 5-41 [facility] Comment on above: Performed By: #### C DP, CP, ALCB #### [facility] [facility] [place] [address] [employer] Worker: Tervon Zheng DO Anion gap [Moles/Vol] 9 mmol/L Normal 9-17 [facility] Comment on above: Performed By: #### C DP, CP, ALCB #### [facility] [place] [address] [employer]wear Factory Worker: Trevon Zheng DO AST [Catalytic activity/Vol] 29 U/L Normal <40 [facility] Comment on above: Performed By: #### C DP, CP, ALCB #### [facility] [address] [facility] [place] [address] [employer]wear [employer] Worker: Trevon Zheng DO Bilirubin [Mass/Vol] 0.2 mg/dL Low 0.3-1.2 [facility] Comment on above: Performed By: #### C DP, CP, ALCB #### [facility] [place] [address] [employer] Worker: Trevon Zheng DO Calcium [Mass/Vol] 9.5 mg/dL Normal 8.6-10.4 [facility] Comment on above: Performed By: #### C DP, CP, ALCB #### [facility] [address] [place] [address]. [place] [address] [employer] Worker: Trevon Zheng DO Chloride [Moles/Vol] 104 mmol/L Normal 98-107 [facility] Comment on above: Performed By: #### C DP, CP, ALCB #### [facility] [place] [address] [employer]wear [employer] Worker: Trevon Zheng DO CO2 [Moles/Vol] 28 mmol/L Normal 20-31 [facility] Comment on above: Performed By: #### C DP, CP, ALCB #### [facility] [address] [place] [address]. [place] [address] [employer]wear Factory Worker: Trevon Zheng DO Creatinine [Mass/Vol] 1.0 mg/dL Normal 0.7-1.2 [facility] Comment on above: Performed By: #### C DP, CP, ALCB #### [facility] [address] [place] [address] [employer] Worker: Trevon Zheng DO GFR/1.73 sq M.predicted among non-blacks MDRD (S/P/Bld) [Vol rate/Area] mL/min/{1.73_m2} Normal >60 [facility] Comment on above: Result Comment: These results are not intended for use in patients <18 years of age. eGFR results are calculated without a race factor using the 1 CKD-EPI equation. Careful clinical correlation is recommended, particularly when comparing to results calculated using previous equations. The CKD-EPI equation is less accurate in patients with extremes of muscle mass, extra-renal metabolism of creatine, excessive creatine ingestion, or following therapy that affects renal tubular secretion. Performed By: #### C DP, CP, ALCB #### [facility] [address] [facility] [place] [address] [employer]wear Factory Worker: Trevon Zheng DO Glucose [Mass/Vol] 86 mg/dL Normal 70-99 [facility] Comment on above: Performed By: #### C DAREK, CP, ALCB #### [facility] [address] [facility] [place] [address] [employer]wear Factory Worker: Trevon Zheng DO Potassium [Moles/Vol] 3.7 mmol/L Normal 3.7-5.3 [facility] Comment on above: Performed By: #### C DAREK, PETE, ALCB #### [facility] [address] [facility] [place] [address] [employer]wear Factory Worker: Trevon Zheng DO Protein [Mass/Vol] 6.7 g/dL Normal 6.4-8.3 [facility] Comment on above: Performed By: #### C DP, CP, ALCB #### [facility] [address] [facility] [place] [address] [employer]wear Factory Worker: Trevon Zheng DO Sodium [Moles/Vol] 141 mmol/L Normal 135-144 [facility] Comment on above: Performed By: #### C DP, CP, ALCB #### [facility] [address] [facility] [place] [address] [employer]wear Factory Worker: Trevon Zheng DO Urea nitrogen [Mass/Vol] 13 mg/dL Normal 6-20 [facility] Comment on above: Performed By: #### C DP, CP, ALCB #### [facility] [address] [place] [address] [employer] Worker: Trevon Zheng DO Drug Scr, Abuse, Uron 2023 Amphetamine(s),Ur Negative Normal NEG [facility] Comment on above: Result Comment: (Positive cutoff 1000 ng/mL) Performed By: #### D AU #### [facility] [address] [place] [address] [employer] Worker: Trevon Zheng DO Barbiturate(s),Ur Negative Normal NEG [facility] Comment on above: Result Comment: (Positive cutoff 200 ng/mL) Performed By: #### D AU #### [facility] [address] [place] [address] [employer] Worker: Trevon Zheng DO Benzodiazepine(s) Negative Normal NEG [facility] Comment on above: Result Comment: (Positive cutoff 200 ng/mL) Performed By: #### D AU #### [facility] [address] [place] [address] [employer] Worker: Trevon Zheng DO Cannabinoid(s),Ur Negative Normal NEG [facility] Comment on above: Result Comment: (Positive cutoff 50 ng/mL) Performed By: #### D AU #### [facility] [address] [place] [address] [employer] Worker: Trevon Zheng DO Cocaine Metabolite Negative Normal NEG [facility] Comment on above: Result Comment: (Positive cutoff 300 ng/mL) Performed By: #### D AU #### [facility] [address] [place] [address] [employer] Worker: Trevon Zheng DO Fentanyl, Urine Negative Normal NEG [facility] Comment on above: Result Comment: (Positive cutoff 5 ng/ml) Performed By: #### D AU #### [facility] [address] [place] [address] [employer] Worker: Trevon Zheng DO Interpretive Info Assay provides medical screening only. The absence of expected drug(s) and/or Normal [facility] Comment on above: Result Comment: meta bolite(s) may indicate diluted or adulterated urine, limitations of testing or timing of collection. Testing for legal purposes should be confirmed by another method. To request confirmation of test result, please call the lab within 7 days of sample submission. Performed By: #### D AU #### [facility] [address] [place] [address] [employer] Worker: Trevon Zheng DO Methadone Ql (U) Negative Normal NEG [facility] Comment on above: Result Comment: (Positive cutoff 300 ng/mL) Performed By: #### D AU #### [facility] [address] [place] [address] [employer] Worker: Trevon Zheng DO Opiate(s), Ur Negative [place] NEG [facility] Comment on above: Result Comment: (Positive cutoff 300 ng/mL) Performed By: #### D AU #### [facility] [address] [place] [address] Footwear Factory Worker: Trevon Zheng DO Oxycodone, Urine Negative Normal NEG [facility] Comment on above: Result Comment: (Positive cutoff 100 ng/mL) Performed By: #### D AU #### [facility] [address] [place] [address] [employer] Factory Worker: Trevon Zheng DO Phencyclidine, Ur Negative Normal NEG [facility] Comment on above: Result Comment: (Positive cutoff 25 ng/mL) Performed By: #### D AU #### [facility] [address] [place] [address] Footwear Factory Worker: Trevon Zheng DO Ethanol Alcoholon 07-20-2023 Ethanol [Mass/Vol] mg/dL Normal <10 [facility] Comment on above: Performed By: #### C DP, CP, ALCB #### [facility] [address] [place] [address] Footwear Factory Worker: Trevon Zheng DO Ethanol percent <0.010 Normal [facility] Comment on above: Performed By: #### C DP, CP, ALCB #### [facility] [address] [facility] [place] [address] Footwear Factory Worker: Trevon Zheng DO TESTOSTERONE, TOTALon 2022 Testosterone [Mass/Vol] 893 ng/dL Normal 264-916 [facility] Comment on above: Result Comment: Adul t male reference interval is based on a population of healthy nonobese males (BMI <30) between 19 and 39 years old. Travison, et.al. JCEM 2017,102;7027-5973. PMID: [id number]. Performed By: #### T ESTTOT #### [facility] [address] [place] [address] Dr. Ro Pizano HEMOGLOBINon 10-18-2022 Hemoglobin (Bld) [Mass/Vol] 14.4 g/dL Normal 14.0-18.0 [facility] Comment on above: Performed By: #### H GB #### [facility] [address] [place] [address] [address] Ro Pizano TESTOSTERONE, TOTALon 2021 Testosterone [Mass/Vol] 1281 ng/dL Critically high 264-916 [facility] Comment on above: Result Comment: Adul t male reference interval is based on a population of healthy nonobese males (BMI <30) between 19 and 39 years old. Travison, et.al. JCEM 2017,102;7757-9257. PMID: [id number]. Performed By: #### T ESTTOT #### [facility] [address] [place], [place] [address] Dr. Ro Pizano HEMOGLOBINon 01-25-2022 Hemoglobin (Bld) [Mass/Vol] 13.5 g/dL Critically low 14.0-18.0 [facility] Comment on above: Performed By: #### H GB #### [facility] [address] [place], [place] [address] Dr. Ro Pizano Covid-19 PCR (CVDTB)on SARS-CoV-2 (COVID-19) RNA SKY+probe Ql (Unsp spec) Not detected Normal NOT DETECTED [facility] Comment on above: Result Comment: This test is not yet approved or cleared by the [place] FDA. When there are no FDA-approved or cleared tests available, and other criteria are met, FDA can make tests available under an emergency access mechanism called an Emergency Use Authorization (EUA). The EUA for this test is supported by the [place] of Health and Human Service's (HHS's) declaration [...] By: #### C VDTBH #### [facility] [address] [place], [place] [address] Dr. Ro Pizano Vital Signs Date Time Vital Sign Value Performing Clinician Brien blakey 07-20-2023 15:02-0500 Body mass index (BMI) [Ratio] 24.96 kg/m2 Froilan Valdez [employer] FE[employer]ER-HAND STEMMER Work Phone: [facility] 07-20-2023 15:02-0500 Body weight 68.04 kg Froilan Reanna-Nossek [employer]-HAND STEMMER Work Phone: [facility] 07-20-2023 15:02-0500 Diastolic blood pressure 78 mm[Hg] Froilan Reanna-Nossek [employer] FE[employer]-HAND STEMMER Work Phone: [facility] 07-20-2023 15:02-0500 Heart rate 99 /min Froilan Reanna-Nossek [employer]IN CAN FEEDER-HAND STEMMER Work Phone: [facility] 07-20-2023 15:02-0500 Systolic blood pressure 122 mm[Hg] Froilan Reanna-Nossek [employer]IN CAN FEEDER-HAND STEMMER Work Phone: [facility] Healthcare Encounters Encounter Date Encounter Type Care Provider Facility Start: 02-08-2024 End: 02-08-2024 ambulatory FROILAN M REANNA-NOSSEK Not Available Start: 12-21-2023 End: 12-21-2023 ambulatory FROILAN M REANNA-NOSSEK Not Available Start: 09-05-2023 End: 09-05-2023 ambulatory FITZ ARORA Not Available Start: 09-04-2023 End: 09-04-2023 ambulatory FROILAN M REANNA-NOSSEK Not Available Start: 08-08-2023 End: 08-08-2023 ambulatory FROILAN M REANNA-NOSSEK Not Available Start: 07-20-2023 End: 07-24-2023 Evaluation and management of inpatient EVERARDO Jasvir [facility] Start: 07-20-2023 End: 07-20-2023 ambulatory FROILAN M REANNA-NOSSEK Not Available Start: 07-20-2023 End: 07-20-2023 Office outpatient visit 40 minutes Froilan M Reanna-Nossek [employer]-HAND [employer]MER Work Phone: [facility] Comment on above: Bipolar 1 disorder, depressed, moderate (CMS/HCC); Anxiety disorder, unspecified type Start: 07-20-2023 Bamboo flowsheet Froilan M Fio r-Nossek [employer]IN CAN FEEDER-HAND STEMMER Work Phone: [facility] Start: 07-20-2023 Bamboo flowsheet Froilan M Fio r-Nossek [employer]IN CAN FEEDER-HAND STEMMER Work Phone: [facility] Start: 05-03-2023 End: 05-03-2023 ambulatory FROILAN M LIZZIE Not Available Start: 10-18-2022 End: 10-19-2022 ambulatory [...] By: #### P SAD #### [facility] [address] [address] [address] Ro Pizano Start: 01-25-2022 PSA screening EVERARDO FLORES Comment on above: Performed By: #### P SAD #### [facility] [address] [address] [address] Ro Pizano Plan of Treatment Date Care Activity Detail Author Start: 02-03-2023 Influenza vaccination Influenza Vacc ine (#1) [facility] Payers Date Payer Category Payer Unknown BCBS BCBS [id number] [id number] 2021-[facility] [phone] [address] [place] [address] [id number] 1985 Unknown [id number] [id number] 1983 Unknown [id number] [id number] 1983 Unknown [id number] 2.840.1.965715.3.579.2.593 1983 Unknown [id number] [id number]3 1983 Unknown [id number] 2.16.840.1.772302.3.579.2.593 1983 Unknown [id number] 2.16.840.1.639887.3.579.2.593 1983 Unknown [id number] 2.16.840.1.385355.3.579.2.176 1983 Unknown [id number] 2.16.840.1.001174.3.579.2.1259 1983 Unknown [id number] 2.16.840.1.991879.3.579.2.9 1983 Unknown [id number] 2.16.840.1.168723.3.579.2.9 1983 Unknown [id number] 2.16.840.1.576417.3.579.2.9 1983 Unknown [id number] 2.16.840.1.911738.3.579.2.1259 1983 Unknown [id number] 2.16.840.1.228668.3.579.2.9 1983 Unknown [id number] [id number] 1959 Unknown [id number] Social History Date Type Detail Facility Start: 11-29-2022 Tobacco smoking status [facility] Never sm oked tobacco [facility] Start: [...] History of Present illness Narrative 07-20-2023 Froilan Valdez, [employer]IN CAN FE[employer]ER-HAND STEMMER - 07/20/2023 3:00 PM ESTLori Christofer, SALES REPRESENTATIVE EDUCATION COURSES - 07/20/2023 3:00 PM EST Note Date & Type Note Facility 07-20-2023 History of Presen t illness Narrative Images from the original note were not included. Travon Mccartney 36 Y old Male,: 1985 [address] [place], [id number] Home: Guarantor:Travon Mccartney Insurance:[employer]ar[employer] PCP:Myah Pak Referring:Froilan [...] difficulties. Working night, Working 12 hours at [employer](working nights),. 4 days a week. Tired of [employer] work. Quit gym. Next week will be on days. Works at [employer]. Denies anxiety. Sleeping 6-7 hours. Medication compliant. [...] Marital status . Occupation: Works full-time at [employer]. Pets: one dog. Sexual abuse: none. Verbal [...] to hospital and agreed to go to [facility]. Patient agreed need to be admitted and agreed to stay safe during transport. Face to face/documentation/review of record= 50min Patient was monitored while waited for to come. F/U post discharge Note generated by [employer] EMR/PM Software ([email or web address]) Having passive thoughts of not wanting to live, having financial stress. documented in this encounter [facility] Clinical Note 06-09-2022 Note Date & [...] authenticated by: EVERT STODDARD Date: 2022-06-09 14:37 [facility] Clinical Note 06-05-2022 Note Date & Type [...] MANN Date: 2022-06-05 18:30 [facility] Evaluation note Note Date & Type [...] and content) DATE CREATED AUTHOR 10/19/2022 [facility] DATE CREATED AUTHOR AUTHOR'S ORGANIZ ATION 07/24/2023 [facility] DATE CREATED AUTHOR AUTHOR'S ORGANIZ ATION 02/10/[address] [facility] dical Specialists EPIC Care Teams (unrecognized sec tion and content) Dtp Operator Relationship Specialty Start Date End Date Froilan Valdez APRN-HAND STEMMER [address] [address] PCP - [place] [employer] 09/03/21 Myah Pak MD [address] [place] [address] PCP - General Physician [employer] Worker 11/14/22 Dtp Operator Relationship Specialty Start Date End Date Froilan Valdez APRN-CNS [address] [address] PCP - [employer] 09/03/21 Myah Pak MD [address] [place] [address] PCP - General Physician [employer] Worker 11/14/22 Reason for Visit (unrecogniz ed section [...] BE BASED ON THE PRIMARY CLINICAL RECORDS. [employer] provides no warranty or guarantee of the accuracy or completeness of information in this document.
[2024-03-26 14:55] LABS: Hemoglobin 13.3 g/dL (14.0-18.0)
[2024-03-26 15:48] LABS: Prostate Specific Antigen Dx 1.33 ng/mL (<=4.00)
[2024-03-27 04:08] LABS: Testosterone 397 ng/dL (264-916)
== END 2024-03-26 14:34 | disposition home or self-care (01) ==
LOC: LAB 14:33
PROVIDERS: PCP Nurse Practitioner Family; Visit Provider Internal Medicine
DX: E23.0 Hypopituitarism (principal); R68.82 Decreased libido
CPT/HCPCS: 36415; 84153; 84403; 85018